=== PATIENT | female | born 1960 | race Caucasian/White ===

== ENCOUNTER 2016-12-17 14:32 | Inpatient (IN) | payer MEDICAID, OTHER, SELFPAY ==
[2016-12-17] MEDS ORDERED: Albuterol/Ipratropium 3.0-0.5 MG/3 ML Neb Soln NEB ONE ×2 (15:17→15:35)
[2016-12-17] MEDS ORDERED: methylPREDNISolone Sodium Succinate 125 MG/2 ML SDV IVPUSH ONE (15:18)
--- NOTE | 2016-12-17 15:22 | EDM.PDOC ---
ED HPI GENERAL MEDICAL PROBLEM - General Chief Complaint: Respiratory Problem Stated Complaint: OXYGEN LEVEL LOW Time Seen by Provider: 12/17/16 15:07 Source of Information: Reports: Patient, [facility] Records History Limitations: Reports: No Limitations - History of Present Illness INITIAL COMMENTS - FREE TEXT/NARRATIVE: HISTORY AND PHYSICAL: History of present illness: Patient is a 56-year-old female who presents to the emergency room from [facility] with complaints of shortness of breath 1 week. 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 Patient is normally on 3 L per nasal cannula for her pre-existing lung disease, skilled nursing staff states they have had to increase her oxygen up to 5 L to get her sats above 88% . Per the skilled nursing's protocol, they are unable to adjust Bianca's oxygen after reaching 5L per NC and are instructed to transfer residence into the emergency room for evaluation. Patient is currently 92% on 5 L per nasal cannula and a temperature of 99.2F. Patient has a past medical history of hypertension, asthma, COPD, emphysema, recurrent pneumonia, cough, and unspecified embolism. Review of systems: As per history of present illness and below otherwise all systems reviewed and negative. Past medical history: As per history of present illness and as reviewed below otherwise noncontributory. Surgical history: As per history of present illness and as reviewed below otherwise noncontributory. Social history: No reported history of drug or alcohol abuse. Family history: As per history of present illness and as reviewed below otherwise noncontributory. Physical exam: General: well-developed and well-nourished 56-year-old female.Able to speak in short sentences before becoming short of breath. Alert and oriented HEENT: Atraumatic, normocephalic, pupils reactive, negative for conjunctival pallor or scleral icterus, mucous membranes moist, throat clear, neck supple, nontender, trachea midline. Lungs: poor air exchange throughout, fine expiratory wheezing noted to posterior upper lobes, labored breathing, chest nontender. Heart: S1S2, regular rate and rythm - tachycardia Abdomen: Soft, obese, nondistended, nontender. Negative for masses. Negative for costovertebral tenderness. Pelvis: Stable nontender. Genitourinary: Deferred. Rectal: Deferred. Extremities: Atraumatic, negative for cords or calf pain. Neurovascular unremarkable. uses a wheelchair for ambulation Neuro: Awake, alert, oriented. Cranial nerves II through XII unremarkable. Cerebellum unremarkable. Motor and sensory unremarkable throughout. Exam nonfocal. Diagnostics: CBC, CMP, EKG, troponin, one view chest x-ray Therapeutics: DuoNeb, Solu-Medrol, oxygen Impression: COPD exacerbation Plan: Admit inpatient Definitive disposition and diagnosis as appropriate pending reevaluation and review of above. Onset: Other (1 week) Duration: Week(s): - Related Data Allergies Allergy/AdvReac Type Severity Reaction Status Date / Time erythromycin base Allergy Cannot Verified 12/17/16 15:17 Remember Home Meds: Home Meds Albuterol Sulfate 1 inh IH Q4H PRN 09/20/15 [History] Formoterol [Perforomist] 1 inh INH BID 09/20/15 [History] metFORMIN HCl [Metformin HCl] 850 mg PO BIDMEALS 09/20/15 [History] predniSONE 10 mg PO DAILY 09/20/15 [History] ALPRAZolam [Alprazolam] 0.5 mg PO Q8H PRN 12/17/16 [History] Acetaminophen [Tylenol] 2 tab PO Q4H PRN 12/17/16 [History] Alum Hydrox/Mag Hydrox/Simeth [Mag-Al Plus] 20 ml PO Q4H PRN 12/17/16 [History] Benzocaine [Oral Anesthetic] 1 applic TP QID PRN 12/17/16 [History] Budesonide [Pulmicort] 1 inh INH BID 12/17/16 [History] Camphor/Phenol [Campho-Phenique Cold Sore Gel] 1 applic TP QID PRN 12/17/16 [ History] Cetirizine [ZyrTEC] 10 mg PO DAILY 12/17/16 [History] Cyclobenzaprine [Flexeril] 10 mg PO Q6H PRN 12/17/16 [History] Docusate Sodium 100 mg PO DAILY 12/17/16 [History] Furosemide [Lasix] 40 mg PO DAILY 12/17/16 [History] Insulin Aspart [NovoLOG] 15 unit SUBCUT ACBREAKFAST 12/17/16 [History] Insulin Aspart [NovoLOG] 17 unit SUBCUT BIDAC 12/17/16 [History] Insulin Aspart [NovoLOG] 100 unit SUBCUT ASDIRECTED 12/17/16 [History] Insulin Glarg,Human.Rec.Analog [LantUS Solostar] 45 units SUBCUT BEDTIME [History] Ipratropium [place] 2.5 ml IH QID 12/17/16 [History] Lisinopril 5 mg PO DAILY 12/17/16 [History] Loperamide HCl [Loperamide] 2 mg PO ASDIRECTED PRN 12/17/16 [History] Magnesium Hydroxide [Milk of Magnesia] 30 ml PO DAILY PRN 12/17/16 [History] Menthol [Biofreeze] 1 applic TP BID PRN 12/17/16 [History] Montelukast Sodium 1 tab PO DAILY 12/17/16 [History] Propylene Glycol/PEG 400/Pf [Systane Ultra 0.4-0.3% Eye Drp] 1 each EYERT DAILY PRN 12/17/16 [History] Sertraline [Zoloft] 25 mg PO DAILY 12/17/16 [History] Trolamine Salicylate/Aloe Vera [Aspercreme 10%] 1 applic TP BID 12/17/16 [ History] Warfarin Sodium [Coumadin] 7.5 mg PO MOWEFR@2100 12/17/16 [History] Warfarin [Coumadin] 5 mg PO SUTUTHSA@2100 12/17/16 [History] atorvaSTATin [Lipitor] 40 mg PO BEDTIME 12/17/16 [History] oxyCODONE HCl/Acetaminophen [Oxycodone-Acetaminophen 5-300] 2 tab PO Q6H PRN 12/24 [History] Levofloxacin [Levaquin] 500 mg PO Q48H #2 tablet 12/19/16 [Rx] Past Medical History HEENT History: Reports: Allergic Rhinitis Cardiovascular History: Reports: Hypertension Respiratory History: Reports: Asthma, COPD Gastrointestinal History: Reports: GERD Musculoskeletal History: Reports: Osteoarthritis Endocrine/Metabolic History: Reports: Diabetes, Type II Social & Family History - Family History Family Medical History: Unobtainable - Tobacco Use Smoking Status *Q: Current Every Day Smoker Years of Tobacco use: 40 Packs/Tins Daily: 1 - Recreational Drug Use Recreational Drug Use: No ED ROS GENERAL - Review of Systems Review Of Systems: ROS reveals no pertinent complaints other than HPI. ED EXAM, GENERAL - Physical Exam Exam: See Below (see dictation) Course - Vital Signs Last Recorded V/S: Last Vital Signs Temp 36.7 C 12/19/16 08:00 Pulse 92 12/19/16 08:00 Resp 16 12/19/16 08:00 BP 135/57 L 12/19/16 08:10 Pulse Ox 90 L 12/19/16 08:00 - Orders/Labs/Meds Labs: Laboratory Tests 12/17/16 12/17/16 12/17/16 Range/Units 15:32 15:32 15:32 WBC 18.23 H (4.0-11.0) K/uL RBC 4.06 L (4.30-5.90) M/uL Hgb 11.2 L (12.0-16.0) g/dL Hct 37.1 (36.0-46.0) % MCV 91.4 (80.0-98.0) fL MCH 27.6 (27.0-32.0) pg MCHC 30.2 L (31.0-37.0) g/dL RDW Std Deviation 60.5 (28.0-62.0) fl RDW Coeff of Jhon 18 H (11.0-15.0) % Plt Count 288 (150-400) K/uL MPV 9.20 (7.40-12.00) fL Neut % (Auto) 87.6 H (48.0-80.0) % Lymph % (Auto) 7.0 L (16.0-40.0) % [place] % (Auto) 5.0 (0.0-15.0) % Eos % (Auto) 0.3 (0.0-7.0) % Baso % (Auto) 0.1 (0.0-1.5) % Neut # (Auto) 16.0 H (1.4-5.7) K/uL Lymph # (Auto) 1.3 (0.6-2.4) K/uL [place] # (Auto) 0.9 H (0.0-0.8) K/uL Eos # (Auto) 0.1 (0.0-0.7) K/uL Baso # (Auto) 0.0 (0.0-0.1) K/uL Nucleated RBC % 0.0 /100WBC Nucleated RBCs # 0 K/uL Sodium 143 (136-146) mmol/L Potassium 4.6 (3.5-5.1) mmol/L Chloride 101 (98-110) mmol/L Carbon Dioxide 32 H (21-31) mmol/L BUN 21 (6.0-23.0) mg/dL Creatinine 1.1 (0.6-1.5) mg/dL Est Cr Clr Drug Dosing 40.53 mL/min Estimated GFR (MDRD) 51.2 ml/min Glucose 72 (60-110) mg/dL POC Glucose (60-110) mg/dL Calcium 10.0 (8.8-10.8) mg/dL Total Bilirubin 0.4 (0.1-1.5) mg/dL AST 20 (5-40) IU/L ALT 35 (8-54) IU/L Alkaline Phosphatase 82 (40-150) Troponin I < 0.10 (0.0-0.29) NG/ML Total Protein 7.6 (6.0-8.0) g/dL Albumin 3.9 (3.5-5.0) g/dL Globulin 3.7 H (2.0-3.5) g/dL Albumin/Globulin Ratio 1.1 L (1.3-2.8) 12/17/16 Range/Units 15:53 WBC (4.0-11.0) K/uL RBC (4.30-5.90) M/uL Hgb (12.0-16.0) g/dL Hct (36.0-46.0) % MCV (80.0-98.0) fL MCH (27.0-32.0) pg MCHC (31.0-37.0) g/dL RDW Std Deviation (28.0-62.0) fl RDW Coeff of Jhon (11.0-15.0) % Plt Count (150-400) K/uL MPV (7.40-12.00) fL Neut % (Auto) (48.0-80.0) % Lymph % (Auto) (16.0-40.0) % [place] % (Auto) (0.0-15.0) % Eos % (Auto) (0.0-7.0) % Baso % (Auto) (0.0-1.5) % Neut # (Auto) (1.4-5.7) K/uL Lymph # (Auto) (0.6-2.4) K/uL [place] # (Auto) (0.0-0.8) K/uL Eos # (Auto) (0.0-0.7) K/uL Baso # (Auto) (0.0-0.1) K/uL Nucleated RBC % /100WBC Nucleated RBCs # K/uL Sodium (136-146) mmol/L Potassium (3.5-5.1) mmol/L Chloride (98-110) mmol/L Carbon Dioxide (21-31) mmol/L BUN (6.0-23.0) mg/dL Creatinine (0.6-1.5) mg/dL Est Cr Clr Drug Dosing mL/min Estimated GFR (MDRD) ml/min Glucose (60-110) mg/dL POC Glucose 72 (60-110) mg/dL Calcium (8.8-10.8) mg/dL Total Bilirubin (0.1-1.5) mg/dL AST (5-40) IU/L ALT (8-54) IU/L Alkaline Phosphatase (40-150) Troponin I (0.0-0.29) NG/ML Total Protein (6.0-8.0) g/dL Albumin (3.5-5.0) g/dL Globulin (2.0-3.5) g/dL Albumin/Globulin Ratio (1.3-2.8) Meds: Medications Discontinued Medications Generic Name Dose Route Start Last Admin Trade Name Caterina PRN Reason Stop Dose Admin Albuterol/Ipratropium 3 ml 12/17/16 15:17 12/17/16 15:37 Duoneb 3.0-0.5 Mg/3 Ml NEB 12/17/16 15:18 3 ml ONETIME ONE Administration Albuterol/Ipratropium 3 ml 12/17/16 15:35 12/17/16 15:41 Duoneb 3.0-0.5 Mg/3 Ml NEB 12/17/16 15:36 3 ml ONETIME ONE Administration Albuterol/Ipratropium 3 ml 12/18/16 00:00 12/19/16 06:57 Duoneb 3.0-0.5 Mg/3 Ml NEB 3 ml Q6HRRT GABRIELLA Administration Atorvastatin Calcium 40 mg 12/18/16 21:00 12/18/16 20:20 Lipitor PO 40 mg BEDTIME GABRIELLA Administration Budesonide 0.5 mg 12/18/16 09:00 12/19/16 08:45 Pulmicort INH 0.5 mg BID GABRIELLA Administration Enoxaparin Sodium 40 mg 12/18/16 09:00 Lovenox SUBCUT DAILY GABRIELLA Furosemide 40 mg 12/17/16 21:00 12/19/16 08:07 Lasix IVPUSH 40 mg BID GABRIELLA Administration Levofloxacin/Dextrose 750 mg/ 150 mls @ 100 mls/hr 12/17/16 17:47 12/17/16 18 :10 Premix IV 12/17/16 19:16 100 mls/hr ONETIME ONE Administration Levofloxacin/Dextrose 750 mg/ 150 mls @ 100 mls/hr 12/18/16 17:00 Premix IV Q24H GABRIELLA Levofloxacin/Dextrose 750 mg/ 150 mls @ 100 mls/hr 12/19/16 18:00 Premix IV Q48H GABRIELLA Insulin Aspart 15 unit 12/18/16 07:30 12/19/16 07:17 Novolog SUBCUT 15 units ACBREAKFAST GABRIELLA Administration Insulin Aspart 17 unit 12/18/16 07:30 Novolog SUBCUT BIDAC GABRIELLA Insulin Aspart 17 unit 12/18/16 11:30 12/18/16 16:43 Novolog SUBCUT 17 unit BID@1130,1700 GABRIELLA Administration Insulin Glargine 45 units 12/17/16 19:45 12/18/16 20:17 Lantus Solostar SUBCUT 45 units BEDTIME GABRIELLA Administration Lisinopril 5 mg 12/18/16 09:00 12/19/16 08:10 Prinivil PO 5 mg DAILY GABRIELLA Administration Methylprednisolone Sodium Succinate 125 mg 12/17/16 15:18 12/17/16 15:53 Solu-Medrol IVPUSH 12/17/16 15:19 125 mg ONETIME ONE Administration Methylprednisolone Sodium Succinate 125 mg 12/17/16 21:00 Solu-Medrol IVPUSH Q6H GABRIELLA Methylprednisolone Sodium Succinate 125 mg 12/17/16 20:00 12/18/16 01:44 Solu-Medrol IVPUSH Not Given Q12H COUNTS INCLUDE 234 BEDS AT THE [facility] Methylprednisolone Sodium Succinate 125 mg 12/18/16 08:00 12/19/16 08:07 Solu-Medrol IVPUSH 125 mg Q12H COUNTS INCLUDE 234 BEDS AT THE [facility] Administration Montelukast Sodium 10 mg 12/18/16 09:00 12/19/16 08:07 Singulair PO 10 mg DAILY COUNTS INCLUDE 234 BEDS AT THE [facility] Administration Formoterol [ 1 each 12/17/16 21:00 12/19/16 08:47 Perforomist] 20 Mcg INH Not Given BID COUNTS INCLUDE 234 BEDS AT THE [facility] Warfarin Sodium 5 mg 12/18/16 21:00 Coumadin PO BEDTIME COUNTS INCLUDE 234 BEDS AT THE [facility] Warfarin Sodium 7.5 mg 12/18/16 21:00 12/18/16 20:20 Coumadin PO 7.5 mg MoWeFr@2100 COUNTS INCLUDE 234 BEDS AT THE [facility] Administration Warfarin Sodium 5 mg 12/17/16 21:44 12/17/16 22:57 Coumadin PO 5 mg SuTuThSa@2100 COUNTS INCLUDE 234 BEDS AT THE [facility] Administration Departure - Departure Time of Disposition: 10:00 Disposition: Admitted As Inpatient 65 Clinical Impression: COPD exacerbation - Discharge Information
[2016-12-17] MEDS ORDERED: Levofloxacin/Dextrose 5%-Water 750 MG in Premix Bag 1 BAG IV ONE (17:47)
--- NOTE | 2016-12-17 19:40 | PCM.HP ---
H&P History of Present Illness - General Admit Problem/Dx: Admission Diagnosis/Problem Admission Diagnosis/Problem COPD, Mild chronic obstructive pulmonary disease - History of Present Illness Initial Comments - Free Text/Narative: 56 yo female with pmh of COPD, DM, CHF and PE on coumadin who resides at [facility]. She is on home O2 and prednisone. She presents with several day history of shortness of breath, orthopnea, and lower leg swelling. Patient believes she is up in her weight. She reports cough but denies any fever or chills. She was requiring NRB at 5 liters to keep sats above 90%. Echocardiogram in 09/22/15 reported EF of 65%. She received solumderol, duonebs and levaquin in the ED. CXR reported cardiomegaly, small pleural effusion and pulmonary edema. - Related Data Allergies/Adverse Reactions: Allergies Allergy/AdvReac Type Severity Reaction Status Date / Time erythromycin base Allergy Cannot Verified 12/17/16 15:17 Remember Home Medications: Home Meds Albuterol Sulfate 1 inh IH Q4H PRN 09/20/15 [History] Budesonide [Pulmicort] 0.5 mg IH BID 09/20/15 [History] Formoterol [Perforomist] 1 inh INH BID 09/20/15 [History] Lisinopril 5 mg PO DAILY 09/20/15 [History] metFORMIN HCl [Metformin HCl] 850 mg PO BIDMEALS 09/20/15 [History] predniSONE 10 mg PO DAILY 09/20/15 [History] ALPRAZolam [Alprazolam] 0.5 mg PO Q8H PRN 12/17/16 [History] Acetaminophen [Tylenol] 2 tab PO Q4H PRN 12/17/16 [History] Alum Hydrox/Mag Hydrox/Simeth [Mag-Al Plus] 20 ml PO Q4H PRN 12/17/16 [History] Benzocaine [Oral Anesthetic] 1 applic TP QID PRN 12/17/16 [History] Budesonide [Pulmicort] 1 inh INH BID 12/17/16 [History] Camphor/Phenol [Campho-Phenique Cold Sore Gel] 1 applic TP QID PRN 12/17/16 [ History] Cetirizine [ZyrTEC] 10 mg PO DAILY 12/17/16 [History] Cyclobenzaprine [Flexeril] 10 mg PO Q6H PRN 12/17/16 [History] Docusate Sodium 100 mg PO DAILY 12/17/16 [History] Furosemide 40 mg PO DAILY 12/17/16 [History] Furosemide [Lasix] 40 mg PO DAILY 12/17/16 [History] Insulin Aspart [NovoLOG] 15 unit SUBCUT ACBREAKFAST 12/17/16 [History] Insulin Aspart [NovoLOG] 17 unit SUBCUT BIDAC 12/17/16 [History] Insulin Aspart [NovoLOG] 100 unit SUBCUT ASDIRECTED 12/17/16 [History] Insulin Glarg,Human.Rec.Analog [LantUS Solostar] 45 units SUBCUT BEDTIME [History] Ipratropium [place] 2.5 ml IH QID 12/17/16 [History] Lisinopril 5 mg PO DAILY 12/17/16 [History] Loperamide HCl [Loperamide] 2 mg PO ASDIRECTED PRN 12/17/16 [History] Magnesium Hydroxide [Milk of Magnesia] 30 ml PO DAILY PRN 12/17/16 [History] Menthol [Biofreeze] 1 applic TP BID PRN 12/17/16 [History] Montelukast Sodium 1 tab PO DAILY 12/17/16 [History] Propylene Glycol/PEG 400/Pf [Systane Ultra 0.4-0.3% Eye Drp] 1 each EYERT DAILY PRN 12/17/16 [History] Sertraline [Zoloft] 25 mg PO DAILY 12/17/16 [History] Trolamine Salicylate/Aloe Vera [Aspercreme 10%] 1 applic TP BID 12/17/16 [ History] Warfarin Sodium [Coumadin] 7.5 mg PO BEDTIME 12/17/16 [History] Warfarin [Coumadin] 5 mg PO BEDTIME 12/17/16 [History] atorvaSTATin [Lipitor] 40 mg PO BEDTIME 12/17/16 [History] oxyCODONE HCl/Acetaminophen [Oxycodone-Acetaminophen 5-300] 2 tab PO Q6H PRN 12/24 [History] Past Medical History HEENT History: Reports: Allergic Rhinitis Cardiovascular History: Reports: Heart Failure, Hypertension Respiratory History: Reports: Asthma, COPD Gastrointestinal History: Reports: GERD Musculoskeletal History: Reports: Osteoarthritis Endocrine/Metabolic History: Reports: Diabetes, Type II - Past Surgical History Cardiovascular Surgical History: Reports: None Social & Family History - Family History Family Medical History: Unobtainable - Tobacco Use Smoking Status *Q: Former Smoker Years of Tobacco use: 40 Packs/Tins Daily: 1 Used Tobacco, but Quit: Yes Month Tobacco Last Used: 09/2015 - Caffeine Use Caffeine Use: Reports: None - Recreational Drug Use Recreational Drug Use: Yes H&P Review of Systems - Review of Systems: Review Of Systems: ROS reveals no pertinent complaints other than HPI. Exam - Exam Exam: See Below - Vital Signs Vital Signs: Last Vital Signs Temp 37.0 C 12/17/16 18:55 Pulse 110 H 12/17/16 18:55 Resp 22 H 12/17/16 18:55 BP 143/73 H 12/17/16 18:55 Pulse Ox 91 L 12/17/16 18:55 Weight: 89.403 kg - Exam General: Alert, Oriented HEENT: Mucosa Moist & [place], Posterior Pharynx Clear Lungs: Normal Respiratory Effort, Decreased Breath Sounds Cardiovascular: Regular Rate, Regular Rhythm GI/Abdominal Exam: Normal Bowel Sounds, Soft, No Distention Extremities: Pedal Edema (mild) Skin: Warm, Dry, Intact Neurological: Strength Equal Bilateral, Normal Speech. No: Focal Deficit - Patient Data Result Diagrams: 12/18/16 04:40 12/18/16 04:40 *Q Meaningful Use (ADM) - VTE *Q VTE Criteria *Q: - Stroke *Q Stroke Criteria *Q: - AMI *Q AMI Criteria *Q: Problem List Initiated/Reviewed/Updated: Yes Orders Last 24hrs: Active Orders 24 hr Category Date Time Status Antiembolic Devices [RC] PER UNIT ROUTINE Care 12/17/16 19:34 Ordered Blood Glucose Check, Bedside [RC] TIDMEALS Care 12/17/16 19:32 Ordered Intake and Output [RC] QSHIFT Care 12/17/16 19:33 Ordered Oxygen Therapy [RC] PRN Care 12/17/16 19:32 Ordered RT Aerosol Therapy [RC] ASDIRECTED Care 12/17/16 19:34 Ordered Up ad Debbie [RC] ASDIRECTED Care 12/17/16 19:32 Ordered VTE/DVT Education [RC] PER UNIT ROUTINE Care 12/17/16 19:32 Ordered Vital Signs [RC] Q4H Care 12/17/16 19:32 Ordered [employer] Diet [DIET] Diet 12/17/16 Breakfast Ordered BASIC METABOLIC PANEL,BMP [CHEM] AM Lab 12/18/16 05:11 Ordered CBC WITH AUTO DIFF [HEME] AM Lab 12/18/16 05:11 Ordered CULTURE BLOOD [BC] Stat Lab 12/17/16 19:34 Ordered CULTURE BLOOD [BC] Stat Lab 12/17/16 19:34 Ordered CULTURE SPUTUM + SMEAR [RM] Stat Lab 12/17/16 19:32 Uncollected Albuterol/Ipratropium [DuoNeb 3.0-0.5 MG/3 ML] Med 12/18/16 00:00 Ordered 3 ml NEB Q6HRRT Enoxaparin [Lovenox] Med 12/18/16 09:00 Ordered 40 mg SUBCUT DAILY Formoterol [Perforomist] Med 12/17/16 21:00 Ordered 20 mcg INH BID Furosemide [Lasix] Med 12/17/16 21:00 Ordered 40 mg IVPUSH BID Levofloxacin/Dextrose 5%-Water [Levaquin in D5W 750 MG/ Med 12/18/16 17:00 Ordered 150 ML] 750 mg Premix Bag 1 bag IV Q24H methylPREDNISolone Sod Succ [Solu-MEDROL] Med 12/17/16 19:45 Ordered 125 mg IVPUSH Q6H Blood Culture x2 Reflex Set [OM.PC] Stat Oth 12/17/16 19:34 Ordered Sequential Compression Device [OM.PC] Per Unit Routine Oth 12/17/16 19:33 Ordered Resuscitation Status Routine Resus Stat 12/17/16 19:32 Ordered Medication Orders Furosemide (Lasix) 40 mg IVPUSH BID GABRIELLA Levofloxacin/Dextrose 750 mg/ (Premix) 150 mls @ 100 mls/hr IV Q24H GABRIELLA Methylprednisolone Sodium Succinate (Solu-Medrol) 125 mg IVPUSH Q6H GABRIELLA Non-Formulary Medication (Formoterol [Perforomist]) 20 mcg INH BID GABRIELLA Assessment/Plan Comment:: 56 yo female admitted with CHF and COPD exacerbation CHF: will diures with lasix COPD exacerbation: treating with solumedrol, duonebs, and levaquin DM: on lantus and ssi history of PE: on coumadin will check INR
[2016-12-17] MEDS ORDERED: methylPREDNISolone Sodium Succinate 125 MG/2 ML SDV IVPUSH SCH ×2 (20:00→21:00)
[2016-12-17] MEDS: Insulin Glargine,Human Rec. Analog 100 Units/ML 3 ML Pen SUBCUT SCH ×2 (21:12→21:17)
[2016-12-17] MEDS: Furosemide 40 MG/4 ML VIAL IVPUSH SCH (21:12)
[2016-12-17] MEDS ORDERED: Warfarin 5 MG Tab PO SCH (21:44)
[2016-12-17] MEDS: Albuterol/Ipratropium 3.0-0.5 MG/3 ML Neb Soln NEB SCH (23:02)
[2016-12-18] MEDS: Insulin Aspart 100 Units/ML 3 ML Pen SUBCUT SCH ×3 (06:48→16:43)
[2016-12-18] MEDS: Albuterol/Ipratropium 3.0-0.5 MG/3 ML Neb Soln NEB SCH ×4 (07:02→23:10)
[2016-12-18] MEDS ORDERED: Insulin Aspart 100 Units/ML 3 ML Pen SUBCUT SCH (07:30)
[2016-12-18] MEDS: Montelukast 10 MG Tab PO SCH (08:35)
[2016-12-18] MEDS: methylPREDNISolone Sodium Succinate 125 MG/2 ML SDV IVPUSH SCH ×2 (08:35→20:18)
[2016-12-18] MEDS: Furosemide 40 MG/4 ML VIAL IVPUSH SCH ×2 (08:35→20:19)
[2016-12-18] MEDS: Lisinopril 5 MG Tab PO SCH (08:35)
[2016-12-18] MEDS: FORMOTEROL 20 MCG INH SCH ×2 (08:36→20:24)
[2016-12-18] MEDS ORDERED: Enoxaparin 40 MG/0.4 ML Syringe SUBCUT SCH (09:00)
[2016-12-18] MEDS: Budesonide 0.5 MG/2 ML Neb Susp INH SCH ×2 (09:14→21:08)
--- NOTE | 2016-12-18 09:35 | PCM.PN ---
- Review of Systems Systems Review Comment:: feeling better, breathing has improved. - Patient Data Vitals - Most Recent: Last Vital Signs Temp 36.1 C 12/18/16 08:00 Pulse 91 12/18/16 08:00 Resp 20 12/18/16 08:00 BP 123/59 L 12/18/16 08:35 Pulse Ox 91 L 12/18/16 08:00 Weight - Most Recent: 75.5 kg I&O - Last 24 Hours: Intake & Output 12/17/16 12/18/16 12/18/16 22:59 06:59 14:59 Intake Total 800 Output Total 1850 Balance -1050 Lab Results Last 24 Hours: Laboratory Results - last 24 hr 12/17/16 12/17/16 12/18/16 Range/Units 19:43 20:45 04:40 WBC 13.75 H (4.0-11.0) K/uL RBC 3.65 L (4.30-5.90) M/uL Hgb 9.9 L (12.0-16.0) g/dL Hct 32.8 L (36.0-46.0) % MCV 89.9 (80.0-98.0) fL MCH 27.1 (27.0-32.0) pg MCHC 30.2 L (31.0-37.0) g/dL RDW Std Deviation 57.9 (28.0-62.0) fl RDW Coeff of Jhon 18 H (11.0-15.0) % Plt Count 284 (150-400) K/uL MPV 9.20 (7.40-12.00) fL Neut % (Auto) 91.1 H (48.0-80.0) % Lymph % (Auto) 5.9 L (16.0-40.0) % [place] % (Auto) 2.9 (0.0-15.0) % Eos % (Auto) 0.0 (0.0-7.0) % Baso % (Auto) 0.1 (0.0-1.5) % Neut # (Auto) 12.5 H (1.4-5.7) K/uL Lymph # (Auto) 0.8 (0.6-2.4) K/uL [place] # (Auto) 0.4 (0.0-0.8) K/uL Eos # (Auto) 0.0 (0.0-0.7) K/uL Baso # (Auto) 0.0 (0.0-0.1) K/uL Nucleated RBC % 0.0 /100WBC Nucleated RBCs # 0 K/uL INR 1.89 H (0.86-1.11) Sodium (136-146) mmol/L Potassium (3.5-5.1) mmol/L Chloride (98-110) mmol/L Carbon Dioxide (21-31) mmol/L BUN (6.0-23.0) mg/dL Creatinine (0.6-1.5) mg/dL Est Cr Clr Drug Dosing mL/min Estimated GFR (MDRD) ml/min Glucose (60-110) mg/dL POC Glucose 121 H (60-110) mg/dL Calcium (8.8-10.8) mg/dL 12/18/16 12/18/16 Range/Units 04:40 04:40 WBC (4.0-11.0) K/uL RBC (4.30-5.90) M/uL Hgb (12.0-16.0) g/dL Hct (36.0-46.0) % MCV (80.0-98.0) fL MCH (27.0-32.0) pg MCHC (31.0-37.0) g/dL RDW Std Deviation (28.0-62.0) fl RDW Coeff of Jhon (11.0-15.0) % Plt Count (150-400) K/uL MPV (7.40-12.00) fL Neut % (Auto) (48.0-80.0) % Lymph % (Auto) (16.0-40.0) % [place] % (Auto) (0.0-15.0) % Eos % (Auto) (0.0-7.0) % Baso % (Auto) (0.0-1.5) % Neut # (Auto) (1.4-5.7) K/uL Lymph # (Auto) (0.6-2.4) K/uL [place] # (Auto) (0.0-0.8) K/uL Eos # (Auto) (0.0-0.7) K/uL Baso # (Auto) (0.0-0.1) K/uL Nucleated RBC % /100WBC Nucleated RBCs # K/uL INR 1.83 H (0.86-1.11) Sodium 143 (136-146) mmol/L Potassium 4.4 (3.5-5.1) mmol/L Chloride 97 L (98-110) mmol/L Carbon Dioxide 34 H (21-31) mmol/L BUN 28 H (6.0-23.0) mg/dL Creatinine 1.3 (0.6-1.5) mg/dL Est Cr Clr Drug Dosing 34.29 mL/min Estimated GFR (MDRD) 42.2 ml/min Glucose 286 H (60-110) mg/dL POC Glucose (60-110) mg/dL Calcium 9.3 (8.8-10.8) mg/dL Med Orders - Current: Current Medications Albuterol/Ipratropium (Duoneb 3.0-0.5 Mg/3 Ml) 3 ml NEB Q6HRRT [facility] Last Admin: 12/18/16 07:02 Dose: 3 ml Atorvastatin Calcium (Lipitor) 40 mg PO BEDTIME [facility] Budesonide (Pulmicort) 0.5 mg INH BID [facility] Last Admin: 12/18/16 09:14 Dose: 0.5 mg Furosemide (Lasix) 40 mg IVPUSH BID [facility] Last Admin: 12/18/16 08:35 Dose: 40 mg Levofloxacin/Dextrose 750 mg/ (Premix) 150 mls @ 100 mls/hr IV Q48H [facility] Insulin Aspart (Novolog) 15 unit SUBCUT ACBREAKFAST [facility] Last Admin: 12/18/16 06:48 Dose: 15 units Insulin Aspart (Novolog) 17 unit SUBCUT BID@1130,1700 [facility] Insulin Glargine (Lantus Solostar) 45 units SUBCUT BEDTIME [facility] Last Admin: 12/17/16 21:17 Dose: Not Given Lisinopril (Prinivil) 5 mg PO DAILY [facility] Last Admin: 12/18/16 08:35 Dose: 5 mg Methylprednisolone Sodium Succinate (Solu-Medrol) 125 mg IVPUSH Q12H [facility] Last Admin: 12/18/16 08:35 Dose: 125 mg Montelukast Sodium (Singulair) 10 mg PO DAILY [facility] Last Admin: 12/18/16 08:35 Dose: 10 mg Formoterol [ (Perforomist] 20 Mcg) 1 each INH BID [facility] Last Admin: 12/18/16 08:36 Dose: Not Given Warfarin Sodium (Coumadin) 7.5 mg PO MoWeFr@2100 [facility] Warfarin Sodium (Coumadin) 5 mg PO SuTuThSa@2100 [facility] Last Admin: 12/17/16 22:57 Dose: 5 mg Discontinued Medications Albuterol/Ipratropium (Duoneb 3.0-0.5 Mg/3 Ml) 3 ml NEB ONETIME ONE Stop: 12/17/16 15:18 Last Admin: 12/17/16 15:37 Dose: 3 ml Albuterol/Ipratropium (Duoneb 3.0-0.5 Mg/3 Ml) 3 ml NEB ONETIME ONE Stop: 12/17/16 15:36 Last Admin: 12/17/16 15:41 Dose: 3 ml Enoxaparin Sodium (Lovenox) 40 mg SUBCUT DAILY [facility] Levofloxacin/Dextrose 750 mg/ (Premix) 150 mls @ 100 mls/hr IV ONETIME ONE Stop: 12/17/16 19:16 Last Admin: 12/17/16 18:10 Dose: 100 mls/hr Levofloxacin/Dextrose 750 mg/ (Premix) 150 mls @ 100 mls/hr IV Q24H [facility] Insulin Aspart (Novolog) 17 unit SUBCUT BIDAC [facility] Methylprednisolone Sodium Succinate (Solu-Medrol) 125 mg IVPUSH ONETIME ONE Stop: 12/17/16 15:19 Last Admin: 12/17/16 15:53 Dose: 125 mg Methylprednisolone Sodium Succinate (Solu-Medrol) 125 mg IVPUSH Q6H [facility] Methylprednisolone Sodium Succinate (Solu-Medrol) 125 mg IVPUSH Q12H [facility] Last Admin: 12/18/16 01:44 Dose: Not Given Warfarin Sodium (Coumadin) 5 mg PO BEDTIME [facility] - Exam General: Alert, Oriented Lungs: Crackles, Wheezing Cardiovascular: Regular Rate, Regular Rhythm GI/Abdominal Exam: Soft, Non-Tender Extremities: No Pedal Edema Skin: Warm, Dry, Intact Neurological: No New Focal Deficit - Problem List Review Problem List Initiated/Reviewed/Updated: Yes - My Orders Last 24 Hours: My Active Orders 12/17/16 19:32 Blood Glucose Check, Bedside [RC] TIDMEALS Oxygen Therapy [RC] PRN Up ad Debbie [RC] ASDIRECTED Vital Signs [RC] Q4H CULTURE SPUTUM + SMEAR [RM] Stat Resuscitation Status Routine 12/17/16 19:33 Intake and Output [RC] QSHIFT Sequential Compression Device [OM.PC] Per Unit Routine 12/17/16 19:34 Antiembolic Devices [RC] PER UNIT ROUTINE RT Aerosol Therapy [RC] ASDIRECTED Blood Culture x2 Reflex Set [OM.PC] Stat 12/17/16 19:43 CULTURE BLOOD [BC] Stat 12/17/16 19:45 Insulin Glarg,Human.Rec.Analog [LantUS Solostar] 45 units SUBCUT BEDTIME 12/17/16 20:02 CULTURE BLOOD [BC] Stat 12/17/16 21:00 Furosemide [Lasix] 40 mg IVPUSH BID Patient's Own Medication [Ptom] 1 each INH BID 12/17/16 21:44 Warfarin [Coumadin] 5 mg PO SuTuThSa@2100 12/18/16 Echo Comp wo Cont [US] Routine 12/18/16 00:00 Albuterol/Ipratropium [DuoNeb 3.0-0.5 MG/3 ML] 3 ml NEB Q6HRRT 12/18/16 07:30 Insulin Aspart [NovoLOG] 15 unit SUBCUT ACBREAKFAST 12/18/16 07:31 Pharmacy Consult [Consult to Pharmacy] [CONS] Routine 12/18/16 08:00 methylPREDNISolone Sod Succ [Solu-MEDROL] 125 mg IVPUSH Q12H 12/18/16 09:00 Budesonide [Pulmicort] 0.5 mg INH BID Lisinopril [Prinivil] 5 mg PO DAILY Montelukast [Singulair] 10 mg PO DAILY 12/18/16 11:30 Insulin Aspart [NovoLOG] 17 unit SUBCUT BID@1130,1700 12/18/16 21:00 Warfarin [Coumadin] 7.5 mg PO MoWeFr@2100 atorvaSTATin [Lipitor] 40 mg PO BEDTIME 12/19/16 05:11 BASIC METABOLIC PANEL,BMP [CHEM] AM CBC WITH AUTO DIFF [HEME] AM INR,PT,PROTHROMBIN TIME [COAG] AM 12/19/16 18:00 Levofloxacin/Dextrose 5%-Water [Levaquin in D5W 750 MG/150 ML] 750 mg Premix Bag 1 bag IV Q48H 12/20/16 05:11 BASIC METABOLIC PANEL,BMP [CHEM] AM CBC WITH AUTO DIFF [HEME] AM INR,PT,PROTHROMBIN TIME [COAG] AM - Plan Plan:: 56 yo female admitted with CHF and COPD exacerbation CHF exacebation: continue lasix, on 3 L NC O2, echocardiogram pending COPD exacerbation: continue solumedrol, duonebs, and levaquin DM: on lantus and ssi history of PE: on coumadin
--- NOTE | 2016-12-18 10:18 | CR ---
EXAM DATE: 12/17/16 PATIENT'S AGE: 56 Patient: ORI GUNDERSON Facility: [place], [place] Site . Site : [id number] Study: XRay Chest [id number] 4:56:28 PM Ordering Physician: Doctor Vail Final Report: HISTORY: Fever, cough and hypoxemia. FINDINGS: AP portable chest radiograph is degraded by artifact. Compression plate fuses the lower cervical spine. Cardiac silhouette is enlarged. Pulmonary vasculature is ill-defined. Peribronchial cuffing is present. There is small bilateral pleural effusions. No lobar consolidation identified. IMPRESSION: 1. Suboptimal exam. 2. Mild cardiomegaly with ill-defined pulmonary vasculature, peribronchial cuffing and small bilateral pleural effusions suggesting CHF. 3. No lobar infiltrate identified. Dictated by Shilpa Schmidt MD @ 12/17/2016 5:20:11 PM Dictated by: Shilpa Schmidt MD @ 12/17/2016 17:20:23 (Electronic Signature) Report Signed by Proxy. [facility]
[2016-12-18] MEDS ORDERED: Levofloxacin/Dextrose 5%-Water 750 MG in Premix Bag 1 BAG IV SCH (17:00)
[2016-12-18] MEDS: Insulin Glargine,Human Rec. Analog 100 Units/ML 3 ML Pen SUBCUT SCH (20:17)
[2016-12-18] MEDS ORDERED: Warfarin 5 MG Tab PO SCH (21:00)
[2016-12-18] MEDS ORDERED: atorvaSTATin 40 MG Tab PO SCH (21:00)
[2016-12-18] MEDS ORDERED: Warfarin 2.5 MG Tab PO SCH (21:00)
[2016-12-19] MEDS: Albuterol/Ipratropium 3.0-0.5 MG/3 ML Neb Soln NEB SCH (06:57)
[2016-12-19] MEDS: Insulin Aspart 100 Units/ML 3 ML Pen SUBCUT SCH (07:17)
[2016-12-19] MEDS: Montelukast 10 MG Tab PO SCH (08:07)
[2016-12-19] MEDS: methylPREDNISolone Sodium Succinate 125 MG/2 ML SDV IVPUSH SCH (08:07)
[2016-12-19] MEDS: Furosemide 40 MG/4 ML VIAL IVPUSH SCH (08:07)
[2016-12-19 08:10] VITALS: BP 135/57
[2016-12-19] MEDS: Lisinopril 5 MG Tab PO SCH (08:10)
[2016-12-19] MEDS: Budesonide 0.5 MG/2 ML Neb Susp INH SCH (08:45)
[2016-12-19] MEDS: FORMOTEROL 20 MCG INH SCH (08:47)
--- NOTE | 2016-12-19 08:49 | PCM.DCSUM1 ---
Discharge Summary - Discharge Data Discharge Date: 12/19/16 Discharge Disposition: DC/Tfer to SNF 03 Condition: Good - Patient Summary/Data Consults: Consultations 12/18/16 07:31 Pharmacy Consult [Consult to Pharmacy] [CONS] Routine - Patient Instructions Diet: Fluid Restriction (1800 ml daily) Other/Special Instructions: PT and OT consult. Supplemental O2 3-4L Via Nasal canula - Discharge Plan Prescriptions/Med Rec: Levofloxacin [Levaquin] 500 mg PO Q48H #2 tablet Home Medications: Home Meds Albuterol Sulfate 1 inh IH Q4H PRN 09/20/15 [History] Formoterol [Perforomist] 1 inh INH BID 09/20/15 [History] metFORMIN HCl [Metformin HCl] 850 mg PO BIDMEALS 09/20/15 [History] predniSONE 10 mg PO DAILY 09/20/15 [History] ALPRAZolam [Alprazolam] 0.5 mg PO Q8H PRN 12/17/16 [History] Acetaminophen [Tylenol] 2 tab PO Q4H PRN 12/17/16 [History] Alum Hydrox/Mag Hydrox/Simeth [Mag-Al Plus] 20 ml PO Q4H PRN 12/17/16 [History] Benzocaine [Oral Anesthetic] 1 applic TP QID PRN 12/17/16 [History] Budesonide [Pulmicort] 1 inh INH BID 12/17/16 [History] Camphor/Phenol [Campho-Phenique Cold Sore Gel] 1 applic TP QID PRN 12/17/16 [ History] Cetirizine [ZyrTEC] 10 mg PO DAILY 12/17/16 [History] Cyclobenzaprine [Flexeril] 10 mg PO Q6H PRN 12/17/16 [History] Docusate Sodium 100 mg PO DAILY 12/17/16 [History] Furosemide [Lasix] 40 mg PO DAILY 12/17/16 [History] Insulin Aspart [NovoLOG] 15 unit SUBCUT ACBREAKFAST 12/17/16 [History] Insulin Aspart [NovoLOG] 17 unit SUBCUT BIDAC 12/17/16 [History] Insulin Aspart [NovoLOG] 100 unit SUBCUT ASDIRECTED 12/17/16 [History] Insulin Glarg,Human.Rec.Analog [LantUS Solostar] 45 units SUBCUT BEDTIME 10/10/ 17 [History] Ipratropium [place] 2.5 ml IH QID 12/17/16 [History] Lisinopril 5 mg PO DAILY 12/17/16 [History] Loperamide HCl [Loperamide] 2 mg PO ASDIRECTED PRN 12/17/16 [History] Magnesium Hydroxide [Milk of Magnesia] 30 ml PO DAILY PRN 12/17/16 [History] Menthol [Biofreeze] 1 applic TP BID PRN 12/17/16 [History] Montelukast Sodium 1 tab PO DAILY 12/17/16 [History] Propylene Glycol/PEG 400/Pf [Systane Ultra 0.4-0.3% Eye Drp] 1 each EYERT DAILY PRN 12/17/16 [History] Sertraline [Zoloft] 25 mg PO DAILY 12/17/16 [History] Trolamine Salicylate/Aloe Vera [Aspercreme 10%] 1 applic TP BID 12/17/16 [ History] Warfarin Sodium [Coumadin] 7.5 mg PO MOWEFR@2100 12/17/16 [History] Warfarin [Coumadin] 5 mg PO SUTUTHSA@2100 12/17/16 [History] atorvaSTATin [Lipitor] 40 mg PO BEDTIME 12/17/16 [History] oxyCODONE HCl/Acetaminophen [Oxycodone-Acetaminophen 5-300] 2 tab PO Q6H PRN 12/24 [History] Levofloxacin [Levaquin] 500 mg PO Q48H #2 tablet 12/19/16 [Rx] Referrals: PCP,None [Primary Care Provider] - - Patient Data Vitals - Most Recent: Last Vital Signs Temp 36.6 C 12/19/16 04:00 Pulse 66 12/19/16 04:00 Resp 20 12/19/16 04:00 BP 135/57 L 12/19/16 08:10 Pulse Ox 95 12/19/16 06:58 Weight - Most Recent: 89.403 kg I&O - Last 24 hours: Intake & Output 12/18/16 12/19/16 12/19/16 22:59 06:59 14:59 Intake Total 780 550 Output Total 1100 1700 Balance -320 -1150 Lab Results - Last 24 hrs: Laboratory Results - last 24 hr 12/18/16 12/18/16 12/18/16 Range/Units 06:16 11:30 16:19 WBC (4.0-11.0) K/uL RBC (4.30-5.90) M/uL Hgb (12.0-16.0) g/dL Hct (36.0-46.0) % MCV (80.0-98.0) fL MCH (27.0-32.0) pg MCHC (31.0-37.0) g/dL RDW Std Deviation (28.0-62.0) fl RDW Coeff of Jhon (11.0-15.0) % Plt Count (150-400) K/uL MPV (7.40-12.00) fL Neut % (Auto) (48.0-80.0) % Lymph % (Auto) (16.0-40.0) % [place] % (Auto) (0.0-15.0) % Eos % (Auto) (0.0-7.0) % Baso % (Auto) (0.0-1.5) % Neut # (Auto) (1.4-5.7) K/uL Lymph # (Auto) (0.6-2.4) K/uL [place] # (Auto) (0.0-0.8) K/uL Eos # (Auto) (0.0-0.7) K/uL Baso # (Auto) (0.0-0.1) K/uL Nucleated RBC % /100WBC Nucleated RBCs # K/uL INR (0.86-1.11) Sodium (136-146) mmol/L Potassium (3.5-5.1) mmol/L Chloride (98-110) mmol/L Carbon Dioxide (21-31) mmol/L BUN (6.0-23.0) mg/dL Creatinine (0.6-1.5) mg/dL Est Cr Clr Drug Dosing mL/min Estimated GFR (MDRD) ml/min Glucose (60-110) mg/dL POC Glucose 233 H 228 H 246 H (60-110) mg/dL Calcium (8.8-10.8) mg/dL 12/18/16 12/19/16 12/19/16 Range/Units 20:11 05:05 05:05 WBC 16.40 H (4.0-11.0) K/uL RBC 3.75 L (4.30-5.90) M/uL Hgb 10.2 L (12.0-16.0) g/dL Hct 33.1 L (36.0-46.0) % MCV 88.3 (80.0-98.0) fL MCH 27.2 (27.0-32.0) pg MCHC 30.8 L (31.0-37.0) g/dL RDW Std Deviation 56.1 (28.0-62.0) fl RDW Coeff of Jhon 17 H (11.0-15.0) % Plt Count 341 (150-400) K/uL MPV 9.70 (7.40-12.00) fL Neut % (Auto) 91.0 H (48.0-80.0) % Lymph % (Auto) 6.2 L (16.0-40.0) % [place] % (Auto) 2.7 (0.0-15.0) % Eos % (Auto) 0.0 (0.0-7.0) % Baso % (Auto) 0.1 (0.0-1.5) % Neut # (Auto) 14.9 H (1.4-5.7) K/uL Lymph # (Auto) 1.0 (0.6-2.4) K/uL [place] # (Auto) 0.5 (0.0-0.8) K/uL Eos # (Auto) 0.0 (0.0-0.7) K/uL Baso # (Auto) 0.0 (0.0-0.1) K/uL Nucleated RBC % 0.0 /100WBC Nucleated RBCs # 0 K/uL INR 2.28 H (0.86-1.11) Sodium (136-146) mmol/L Potassium (3.5-5.1) mmol/L Chloride (98-110) mmol/L Carbon Dioxide (21-31) mmol/L BUN (6.0-23.0) mg/dL Creatinine (0.6-1.5) mg/dL Est Cr Clr Drug Dosing mL/min Estimated GFR (MDRD) ml/min Glucose (60-110) mg/dL POC Glucose 232 H (60-110) mg/dL Calcium (8.8-10.8) mg/dL 12/19/16 12/19/16 Range/Units 05:05 06:11 WBC (4.0-11.0) K/uL RBC (4.30-5.90) M/uL Hgb (12.0-16.0) g/dL Hct (36.0-46.0) % MCV (80.0-98.0) fL MCH (27.0-32.0) pg MCHC (31.0-37.0) g/dL RDW Std Deviation (28.0-62.0) fl RDW Coeff of Jhon (11.0-15.0) % Plt Count (150-400) K/uL MPV (7.40-12.00) fL Neut % (Auto) (48.0-80.0) % Lymph % (Auto) (16.0-40.0) % [place] % (Auto) (0.0-15.0) % Eos % (Auto) (0.0-7.0) % Baso % (Auto) (0.0-1.5) % Neut # (Auto) (1.4-5.7) K/uL Lymph # (Auto) (0.6-2.4) K/uL [place] # (Auto) (0.0-0.8) K/uL Eos # (Auto) (0.0-0.7) K/uL Baso # (Auto) (0.0-0.1) K/uL Nucleated RBC % /100WBC Nucleated RBCs # K/uL INR (0.86-1.11) Sodium 138 (136-146) mmol/L Potassium 4.4 (3.5-5.1) mmol/L Chloride 91 L (98-110) mmol/L Carbon Dioxide 35 H (21-31) mmol/L BUN 43 H (6.0-23.0) mg/dL Creatinine 1.5 (0.6-1.5) mg/dL Est Cr Clr Drug Dosing 29.72 mL/min Estimated GFR (MDRD) 35.8 ml/min Glucose 314 H (60-110) mg/dL POC Glucose 285 H (60-110) mg/dL Calcium 9.5 (8.8-10.8) mg/dL KOYR Results - Last 24 hrs: Microbiology 12/17/16 20:02 Aerobic Blood Culture - Preliminary Blood - Venous - Lab Draw NO GROWTH AFTER 1 DAY Anaerobic Blood Culture - Preliminary NO GROWTH AFTER 1 DAY 12/17/16 19:43 Aerobic Blood Culture - Preliminary Blood - Venous NO GROWTH AFTER 1 DAY Anaerobic Blood Culture - Preliminary NO GROWTH AFTER 1 DAY Med Orders - Current: Current Medications Albuterol/Ipratropium (Duoneb 3.0-0.5 Mg/3 Ml) 3 ml NEB Q6HRRT [facility] Last Admin: 12/19/16 06:57 Dose: 3 ml Atorvastatin Calcium (Lipitor) 40 mg PO BEDTIME [facility] Last Admin: 12/18/16 20:20 Dose: 40 mg Budesonide (Pulmicort) 0.5 mg INH BID [facility] Last Admin: 12/18/16 21:08 Dose: 0.5 mg Furosemide (Lasix) 40 mg IVPUSH BID [facility] Last Admin: 12/19/16 08:07 Dose: 40 mg Levofloxacin/Dextrose 750 mg/ (Premix) 150 mls @ 100 mls/hr IV Q48H [facility] Insulin Aspart (Novolog) 15 unit SUBCUT ACBREAKFAST [facility] Last Admin: 12/19/16 07:17 Dose: 15 units Insulin Aspart (Novolog) 17 unit SUBCUT BID@1130,1700 [facility] Last Admin: 12/18/16 16:43 Dose: 17 unit Insulin Glargine (Lantus Solostar) 45 units SUBCUT BEDTIME [facility] Last Admin: 12/18/16 20:17 Dose: 45 units Lisinopril (Prinivil) 5 mg PO DAILY [facility] Last Admin: 12/19/16 08:10 Dose: 5 mg Methylprednisolone Sodium Succinate (Solu-Medrol) 125 mg IVPUSH Q12H [facility] Last Admin: 12/19/16 08:07 Dose: 125 mg Montelukast Sodium (Singulair) 10 mg PO DAILY [facility] Last Admin: 12/19/16 08:07 Dose: 10 mg Formoterol [ (Perforomist] 20 Mcg) 1 each INH BID [facility] Last Admin: 12/18/16 20:24 Dose: Not Given Warfarin Sodium (Coumadin) 7.5 mg PO MoWeFr@2100 [facility] Last Admin: 12/18/16 20:20 Dose: 7.5 mg Warfarin Sodium (Coumadin) 5 mg PO SuTuThSa@2100 [facility] Last Admin: 12/17/16 22:57 Dose: 5 mg Discontinued Medications Albuterol/Ipratropium (Duoneb 3.0-0.5 Mg/3 Ml) 3 ml NEB ONETIME ONE Stop: 12/17/16 15:18 Last Admin: 12/17/16 15:37 Dose: 3 ml Albuterol/Ipratropium (Duoneb 3.0-0.5 Mg/3 Ml) 3 ml NEB ONETIME ONE Stop: 12/17/16 15:36 Last Admin: 12/17/16 15:41 Dose: 3 ml Enoxaparin Sodium (Lovenox) 40 mg SUBCUT DAILY [facility] Levofloxacin/Dextrose 750 mg/ (Premix) 150 mls @ 100 mls/hr IV ONETIME ONE Stop: 12/17/16 19:16 Last Admin: 12/17/16 18:10 Dose: 100 mls/hr Levofloxacin/Dextrose 750 mg/ (Premix) 150 mls @ 100 mls/hr IV Q24H [facility] Insulin Aspart (Novolog) 17 unit SUBCUT BIDAC [facility] Methylprednisolone Sodium Succinate (Solu-Medrol) 125 mg IVPUSH ONETIME ONE Stop: 12/17/16 15:19 Last Admin: 12/17/16 15:53 Dose: 125 mg Methylprednisolone Sodium Succinate (Solu-Medrol) 125 mg IVPUSH Q6H [facility] Methylprednisolone Sodium Succinate (Solu-Medrol) 125 mg IVPUSH Q12H [facility] Last Admin: 12/18/16 01:44 Dose: Not Given Warfarin Sodium (Coumadin) 5 mg PO BEDTIME [facility] *Q Meaningful Use (DIS) - VTE *Q VTE Criteria *Q: - Stroke *Q Stroke Criteria *Q: - AMI *Q AMI Criteria *Q:
[2016-12-19] MEDS ORDERED: Levofloxacin/Dextrose 5%-Water 750 MG in Premix Bag 1 BAG IV SCH (18:00)
--- NOTE | 2016-12-24 14:42 | ECHO ---
EXAM DATE: 12/17/16 PATIENT'S AGE: 56 The echocardiogram report can be seen in this patient's EMR (Electronic Medical Record) in the Reports section. The report has also been scanned into PACs. RUSLAN
== END 2016-12-19 11:28 | DRG 191 ==
LOC: MW.ED 14:32 → MW.MS 17:47
PROVIDERS: ADMIT Internal Medicine; ATTEND Internal Medicine
DX: J44.1 Chronic obstructive pulmonary disease with (acute) exacerbation (principal); I50.9 Heart failure, unspecified; I50.30 Unspecified diastolic (congestive) heart failure; K21.9 Gastro-esophageal reflux disease without esophagitis; I74.9 Embolism and thrombosis of unspecified artery; Z87.891 Personal history of nicotine dependence; I10 Essential (primary) hypertension; E11.9 Type 2 diabetes mellitus without complications; Z79.899 Other long term (current) drug therapy; Z79.4 Long term (current) use of insulin; Z79.01 Long term (current) use of anticoagulants; Z88.8 Allergy status to other drugs, medicaments and biological substances; Z86.711 Personal history of pulmonary embolism
CPT/HCPCS: 36415; 71010; 80053; 82962; 84484; 85025; 93005; 94640; 96374; 99285; J2930; 80048; 85610; 87040; 87070; 87077; 87186; 87205; 93306; 96375; 99284; A9270-GY; J1815-GY; J1940; J1956

== ENCOUNTER 2017-03-21 10:40 | Inpatient (IN) | payer MEDICAID ==
--- NOTE | 2017-03-21 11:02 | EDM.PDOC ---
ED HPI GENERAL MEDICAL PROBLEM - General Chief Complaint: Respiratory Problem Stated Complaint: AMB Time Seen by Provider: 03/21/17 10:45 Source of Information: Reports: Patient, Residential Records History Limitations: Reports: No Limitations - History of Present Illness INITIAL COMMENTS - FREE TEXT/NARRATIVE: HISTORY AND PHYSICAL: History of present illness: [Patient comes to the emergency room today with complaints of increased shortness of breath. She resides at the local skilled nursing and had an outpatient chest x-ray and labs yesterday and was diagnosed with bilateral lower lobe pneumonia. Today she has had increased difficulty breathing and is overall feeling worse. The skilled nursing called EMS to transport to the ER for evaluation. When she arrived to the emergency room her O2 sat was in the low 80s on 4 L of oxygen. She wears oxygen continuously and does well on 3 L usually at the skilled nursing. O2 is increased to 10L on nonrebreather mask. She has not had fever or chills. No runny nose or headache. No chest pain. No abd pain, nausea or vomiting. Denies swelling to her feet or lower legs. No muscle or joint aches or pains.] Review of systems: As per history of present illness and below otherwise all systems reviewed and negative. Past medical history: As per history of present illness and as reviewed below otherwise noncontributory. Surgical history: As per history of present illness and as reviewed below otherwise noncontributory. Social history: No reported history of drug or alcohol abuse. Family history: As per history of present illness and as reviewed below otherwise noncontributory. Physical exam: HEENT: Atraumatic, normocephalic. Mucous membranes are dry. throat clear, neck supple, nontender, trachea midline. Lungs: Diminished breath sounds throughout. No overt wheezing crackles or rales. Heart: S1S2, regular rate and rhythm. negative for clicks, rubs, or JVD. Abdomen: Obese. Soft, nondistended, nontender. Pelvis: Stable nontender. Genitourinary: Deferred. Rectal: Deferred. Extremities: Atraumatic, no cyanosis or edema to feet or lower legs. Neurovascular unremarkable. Neuro: Awake, alert, oriented. Motor and sensory unremarkable throughout. Exam nonfocal. Diagnostics: [CXR, CBC, lactic acid, troponin, ABG, BNP, Influenza A&B swab, CMP, blood cultures x 2, UA, type and screen] Therapeutics: [250mL bolus x 2] Impression: [pneumonia] Plan: [White blood cells 15.7, hemoglobin 8.9, lactate 3.4, B1 42, creatinine 2.1. BP improves with NS bolus. Dopamine was held. Patient's condition is discussed with DR. Preston, who is in the ER, agrees to accept patient to ICU. Dr. Preston is also notified of patient's hemoglobin level. IV antibiotics were started prior to patient's dismissal from the ER to [facility]. Patients in agreement with hospitalization stay. ] Definitive disposition and diagnosis as appropriate pending reevaluation and review of above. Sacral Pain Score (Numeric/FACES): 7 - Related Data Allergies Allergy/AdvReac Type Severity Reaction Status Date / Time erythromycin base Allergy Hives Verified 03/21/17 11:00 Home Meds: Home Meds Albuterol Sulfate 1 inh IH Q4H PRN 09/20/15 [History] Formoterol [Perforomist] 1 inh INH BID 09/20/15 [History] metFORMIN HCl [Metformin HCl] 1,000 mg PO BIDMEALS 09/20/15 [History] predniSONE 10 mg PO DAILY 09/20/15 [History] ALPRAZolam [Alprazolam] 0.5 mg PO Q8H PRN 12/17/16 [History] Acetaminophen [Tylenol] 2 tab PO Q4H PRN 12/17/16 [History] Alum Hydrox/Mag Hydrox/Simeth [Mag-Al Plus] 20 ml PO Q4H PRN 12/17/16 [History] Benzocaine [Oral Anesthetic] 1 applic TP QID PRN 12/17/16 [History] Budesonide [Pulmicort] 1 inh INH BID 12/17/16 [History] Cetirizine [ZyrTEC] 10 mg PO DAILY 12/17/16 [History] Cyclobenzaprine [Flexeril] 10 mg PO Q6H PRN 12/17/16 [History] Docusate Sodium 100 mg PO DAILY 12/17/16 [History] Furosemide [Lasix] 40 mg PO DAILY 12/17/16 [History] Insulin Aspart [NovoLOG] 15 unit SUBCUT ACBREAKFAST 12/17/16 [History] Insulin Aspart [NovoLOG] 17 unit SUBCUT ASDIRECTED 12/17/16 [History] Insulin Aspart [NovoLOG] 100 unit SUBCUT ASDIRECTED 12/17/16 [History] Insulin Glarg,Human.Rec.Analog [LantUS Solostar] 45 units SUBCUT BEDTIME [History] Ipratropium [place] 2.5 ml IH QID 12/17/16 [History] Lisinopril 5 mg PO DAILY 12/17/16 [History] Magnesium Hydroxide [Milk of Magnesia] 30 ml PO DAILY PRN 12/17/16 [History] Menthol [Biofreeze] 1 applic TP BID PRN 12/17/16 [History] Montelukast Sodium 10 mg PO DAILY 12/17/16 [History] Sertraline [Zoloft] 25 mg PO DAILY 12/17/16 [History] Trolamine Salicylate/Aloe Vera [Aspercreme 10%] 1 applic TP BID 12/17/16 [ History] atorvaSTATin [Lipitor] 40 mg PO BEDTIME 12/17/16 [History] oxyCODONE HCl/Acetaminophen [Oxycodone-Acetaminophen 5-300] 2 tab PO Q6H PRN 12/24 [History] Furosemide 80 mg PO DAILY 03/21/17 [History] Levofloxacin [Levaquin] 750 mg PO DAILY 03/21/17 [History] Omeprazole 20 mg PO DAILY 03/21/17 [History] Warfarin [Coumadin] 2.5 mg PO DAILY 03/21/17 [History] Past Medical History HEENT History: Reports: Allergic Rhinitis Cardiovascular History: Reports: Hypertension Respiratory History: Reports: Asthma, COPD Gastrointestinal History: Reports: GERD Musculoskeletal History: Reports: Osteoarthritis Endocrine/Metabolic History: Reports: Diabetes, Type II - Past Surgical History Cardiovascular Surgical History: Reports: None Social & Family History - Family History Family Medical History: Unobtainable - Tobacco Use Smoking Status *Q: Current Every Day Smoker Years of Tobacco use: 40 Packs/Tins Daily: 1 Used Tobacco, but Quit: Yes Month Tobacco Last Used: 09/2015 - Caffeine Use Caffeine Use: Reports: None - Recreational Drug Use Recreational Drug Use: No ED ROS GENERAL - Review of Systems Review Of Systems: ROS reveals no pertinent complaints other than HPI. ED EXAM, GENERAL - Physical Exam Exam: See Below Course - Vital Signs Last Recorded V/S: Last Vital Signs Temp 97.7 F 03/21/17 20:00 Pulse 112 H 03/21/17 20:00 Resp 18 03/21/17 20:00 BP 103/74 03/21/17 20:00 Pulse Ox 98 03/21/17 20:00 - Orders/Labs/Meds Orders: Active Orders 24 hr Category Date Time Status BIPAP Adult [RT BiPAP/CPAP] [RC] ASDIRECTED Care 03/21/17 11:58 Inactive CULTURE BLOOD [BC] Stat Lab 03/21/17 10:53 Received CULTURE BLOOD [BC] Stat Lab 03/21/17 11:18 Received Piperacillin/Tazobactam [Piperacil-Tazobact] 4.5 gm Med 03/21/17 12:15 Active Sodium Chloride 0.9% [Normal Saline] 100 ml IV Q6H Vancomycin Pharmacy to Dose [Pharmacy to Dose - Med 03/21/17 12:15 Active Vancomycin] 1 dose .XX ASDIRECTED Blood Culture x2 Reflex Set [OM.PC] Stat Oth 03/21/17 10:47 Ordered Transfuse Red Blood Cells [COMM] Stat Oth 03/21/17 12:00 Ordered Medication Orders Albuterol (Proventil Neb Soln) 2.5 mg INH Q4H PRN PRN Reason: Shortness of Breath Budesonide (Pulmicort) 0.5 mg INH BIDRT [facility] Last Admin: 03/21/17 20:06 Dose: 0.5 mg Piperacillin Sod/Tazobactam (Sod 4.5 gm/ Sodium Chloride) 100 mls @ 100 mls/hr IV Q6H [facility] Last Admin: 03/21/17 19:15 Dose: 100 mls/hr Infusion: 03/21/17 13:43 Dose: 100 mls/hr Admin: 03/21/17 12:43 Dose: 100 mls/hr Sodium Chloride (Normal Saline) 1,000 mls @ 10 mls/hr IV ASDIRECTED [facility] Last Admin: 03/21/17 12:43 Dose: 10 mls/hr Vancomycin HCl 1,500 mg/ (Sodium Chloride) 500 mls @ 250 mls/hr IV Q24H [facility] Last Admin: 03/21/17 14:30 Dose: 250 mls/hr Sodium Chloride (Normal Saline) 500 mls @ 500 mls/hr IV .BOLUS [facility] Last Admin: 03/21/17 14:30 Dose: 500 mls/hr Levofloxacin/Dextrose 750 mg/ (Premix) 150 mls @ 100 mls/hr IV Q48H [facility] Last Admin: 03/21/17 17:25 Dose: 100 mls/hr Insulin Aspart (Novolog) 0 unit SUBCUT TIDAC [facility] PRN Reason: Protocol Last Admin: 03/21/17 17:25 Dose: 2 units Insulin Glargine (Lantus Solostar) 30 units SUBCUT BEDTIME [facility] Last Admin: 03/21/17 20:06 Dose: 30 units Warfarin, Pharmacy (To Dose) 0 each .XX DAILY@1400 [facility] Ondansetron HCl (Zofran) 4 mg IVPUSH Q4H PRN PRN Reason: Nausea Prednisone (Prednisone) 10 mg PO DAILY [facility] Vancomycin HCl (Pharmacy To Dose - Vancomycin) 1 dose .XX ASDIRECTED [facility] Warfarin Sodium (Coumadin) 2.5 mg PO DAILY@1400 [facility] Labs: Laboratory Tests 03/21/17 03/21/17 03/21/17 Range/Units 10:53 10:53 10:53 WBC 15.74 H (4.0-11.0) K/uL RBC 3.19 L (4.30-5.90) M/uL Hgb 8.9 L (12.0-16.0) g/dL Hct 29.3 L (36.0-46.0) % MCV 91.8 (80.0-98.0) fL MCH 27.9 (27.0-32.0) pg MCHC 30.4 L (31.0-37.0) g/dL RDW Std Deviation 56.6 (28.0-62.0) fl RDW Coeff of Jhon 17 H (11.0-15.0) % Plt Count 276 (150-400) K/uL MPV 9.30 (7.40-12.00) fL Neut % (Auto) 84.0 H (48.0-80.0) % Lymph % (Auto) 6.4 L (16.0-40.0) % [place] % (Auto) 9.3 (0.0-15.0) % Eos % (Auto) 0.1 (0.0-7.0) % Baso % (Auto) 0.2 (0.0-1.5) % Neut # (Auto) 13.2 H (1.4-5.7) K/uL Lymph # (Auto) 1.0 (0.6-2.4) K/uL [place] # (Auto) 1.5 H (0.0-0.8) K/uL Eos # (Auto) 0.0 (0.0-0.7) K/uL Baso # (Auto) 0.0 (0.0-0.1) K/uL Nucleated RBC % 0.0 /100WBC Nucleated RBCs # 0 K/uL INR (0.86-1.11) Lactate 3.4 H (0.20-2.00) mmol/L Sodium 141 (136-146) mmol/L Potassium 4.2 (3.5-5.1) mmol/L Chloride 94 L (98-110) mmol/L Carbon Dioxide 34 H (21-31) mmol/L BUN 42 H (6.0-23.0) mg/dL Creatinine 2.1 H (0.6-1.5) mg/dL Est Cr Clr Drug Dosing TNP Estimated GFR (MDRD) 24.3 ml/min Glucose 203 H (60-110) mg/dL Calcium 9.5 (8.8-10.8) mg/dL Total Bilirubin 0.7 (0.1-1.5) mg/dL AST 13 (5-40) IU/L ALT 23 (8-54) IU/L Alkaline Phosphatase 64 (40-150) Troponin I < 0.10 (0.0-0.29) NG/ML B-Natriuretic Peptide (<100) PG/ML Total Protein 7.0 (6.0-8.0) g/dL Albumin 3.7 (3.5-5.0) g/dL Globulin 3.3 (2.0-3.5) g/dL Albumin/Globulin Ratio 1.1 L (1.3-2.8) 03/21/17 03/21/17 Range/Units 10:53 10:53 WBC (4.0-11.0) K/uL RBC (4.30-5.90) M/uL Hgb (12.0-16.0) g/dL Hct (36.0-46.0) % MCV (80.0-98.0) fL MCH (27.0-32.0) pg MCHC (31.0-37.0) g/dL RDW Std Deviation (28.0-62.0) fl RDW Coeff of Jhon (11.0-15.0) % Plt Count (150-400) K/uL MPV (7.40-12.00) fL Neut % (Auto) (48.0-80.0) % Lymph % (Auto) (16.0-40.0) % [place] % (Auto) (0.0-15.0) % Eos % (Auto) (0.0-7.0) % Baso % (Auto) (0.0-1.5) % Neut # (Auto) (1.4-5.7) K/uL Lymph # (Auto) (0.6-2.4) K/uL [place] # (Auto) (0.0-0.8) K/uL Eos # (Auto) (0.0-0.7) K/uL Baso # (Auto) (0.0-0.1) K/uL Nucleated RBC % /100WBC Nucleated RBCs # K/uL INR 2.95 H (0.86-1.11) Lactate (0.20-2.00) mmol/L Sodium (136-146) mmol/L Potassium (3.5-5.1) mmol/L Chloride (98-110) mmol/L Carbon Dioxide (21-31) mmol/L BUN (6.0-23.0) mg/dL Creatinine (0.6-1.5) mg/dL Est Cr Clr Drug Dosing Estimated GFR (MDRD) ml/min Glucose (60-110) mg/dL Calcium (8.8-10.8) mg/dL Total Bilirubin (0.1-1.5) mg/dL AST (5-40) IU/L ALT (8-54) IU/L Alkaline Phosphatase (40-150) Troponin I (0.0-0.29) NG/ML B-Natriuretic Peptide 50 (<100) PG/ML Total Protein (6.0-8.0) g/dL Albumin (3.5-5.0) g/dL Globulin (2.0-3.5) g/dL Albumin/Globulin Ratio (1.3-2.8) Meds: Medications Generic Name Dose Route Start Last Admin Trade Name Freq PRN Reason Stop Dose Admin Albuterol 2.5 mg 03/21/17 17:58 Proventil Neb Soln INH Q4H PRN Shortness of Breath Budesonide 0.5 mg 03/21/17 21:00 03/21/17 20:06 Pulmicort INH 0.5 mg BIDRT GABRIELLA Administration Piperacillin Sod/Tazobactam 100 mls @ 100 mls/hr 03/21/17 12:15 03/21/17 19: 15 Sod 4.5 gm/ Sodium Chloride IV 100 mls/hr Q6H GABRIELLA Administration Sodium Chloride 1,000 mls @ 10 mls/hr 03/21/17 13:15 03/21/17 12:43 Normal Saline IV 10 mls/hr ASDIRECTED GABRIELLA Administration Vancomycin HCl 1,500 mg/ 500 mls @ 250 mls/hr 03/21/17 14:30 03/21/17 14:30 Sodium Chloride IV 250 mls/hr Q24H G[facility]ELLA Administration Sodium Chloride 500 mls @ 500 mls/hr 03/21/17 14:15 03/21/17 14:30 Normal Saline IV 500 mls/hr .BOLUS GABRIELLA Administration Levofloxacin/Dextrose 750 mg/ 150 mls @ 100 mls/hr 03/21/17 16:30 03/21/17 17 :25 Premix IV 100 mls/hr Q48H G[facility]RIELLA Administration Insulin Aspart 0 unit 03/21/17 17:00 03/21/17 17:25 Novolog SUBCUT 2 units TIDAC [facility] Administration Protocol Insulin Glargine 30 units 03/21/17 21:00 03/21/17 20:06 Lantus Solostar SUBCUT 30 units BEDTIME [facility]ELLA Administration Warfarin, Pharmacy 0 each 03/22/17 09:00 To Dose .XX DAILY@1400 [facility] Ondansetron HCl 4 mg 03/21/17 12:36 Zofran IVPUSH Q4H PRN Nausea Prednisone 10 mg 03/22/17 09:00 Prednisone PO DAILY [facility] Vancomycin HCl 1 dose 03/21/17 12:15 Pharmacy To Dose - Vancomycin .XX ASDIRECTED [facility] Warfarin Sodium 2.5 mg 03/22/17 14:00 Coumadin PO DAILY@1400 [facility] Discontinued Medications Generic Name Dose Route Start Last Admin Trade Name Freq PRN Reason Stop Dose Admin Sodium Chloride 1,000 mls @ 250 mls/hr 03/21/17 11:03 03/21/17 11:31 Normal Saline IV 03/21/17 15:02 999 mls/hr STAT ONE Administration Levofloxacin/Dextrose 750 mg/ 150 mls @ 100 mls/hr 03/21/17 11:54 03/21/17 14 :22 Premix IV 03/21/17 13:23 Not Given ONETIME ONE Dopamine HCl/Dextrose 250 mls @ 0 mls/hr 03/21/17 12:00 Dopamine In D5w 400 Mg/250 Ml IV TITRATE [facility]RIELLA Protocol 5 MCG/KG/MIN Insulin Glargine 45 units 03/21/17 21:00 Lantus Solostar SUBCUT BEDTIME [facility] Warfarin Pharmacy To 0 each 03/22/17 14:00 Dose .XX DAILY [facility]ELLA Departure - Departure Time of Disposition: 12:13 Disposition: Admitted As Inpatient 65 Condition: Fair Clinical Impression: Pneumonia - Discharge Information - My Orders Last 24 Hours: My Active Orders 03/21/17 10:47 Blood Culture x2 Reflex Set [OM.PC] Stat 03/21/17 10:53 CULTURE BLOOD [BC] Stat 03/21/17 11:18 CULTURE BLOOD [BC] Stat 03/21/17 11:58 BIPAP Adult [RT BiPAP/CPAP] [RC] ASDIRECTED 03/21/17 12:00 Transfuse Red Blood Cells [COMM] Stat - Assessment/Plan Last 24 Hours: My Active Orders 03/21/17 10:47 Blood Culture x2 Reflex Set [OM.PC] Stat 03/21/17 10:53 CULTURE BLOOD [BC] Stat 03/21/17 11:18 CULTURE BLOOD [BC] Stat 03/21/17 11:58 BIPAP Adult [RT BiPAP/CPAP] [RC] ASDIRECTED 03/21/17 12:00 Transfuse Red Blood Cells [COMM] Stat
[2017-03-21] MEDS ORDERED: Sodium Chloride 0.9% 1,000 ML IV ONE (11:03)
[2017-03-21 11:37] LABS: CHLORIDE,CL 94 mmol/L (98-110); SODIUM,NA 141 mmol/L (136-146)
[2017-03-21] MEDS ORDERED: Levofloxacin/Dextrose 5%-Water 750 MG in Premix Bag 1 BAG IV ONE (11:54)
[2017-03-21] MEDS ORDERED: DOPamine/Dextrose 5%-Water 250 ML IV SCH (12:00)
--- NOTE | 2017-03-21 12:27 | CR ---
EXAMINATION: Two-view chest (PA and Lateral views). HISTORY: Shortness of breath. Comparison: 12/17/2016. FINDINGS: The trachea is midline. The cardiomediastinal silhouette is within normal limits. Hazy opacities note d within the lung bases bilaterally, similar in appearance to the previous radiograph. There is howev er blunting of the lung bases on the lateral images. Chronic interstitial prominence noted. Osseous structures appear unremarkable. IMPRESSION: 1. Mild bibasilar atelectasis and/or infiltrate.
[2017-03-21] MEDS ORDERED: Ondansetron 4 MG/2 ML SDV IVPUSH PRN (12:36)
[2017-03-21] MEDS: Piperacillin/Tazobactam 4.5 GM in Sodium Chloride 0.9% 100 ML IV SCH ×3 (12:43→23:37)
--- NOTE | 2017-03-21 12:45 | PCM.HP ---
H&P History of Present Illness - General Admit Problem/Dx: Admission Diagnosis/Problem Admission Diagnosis/Problem Pneumonia - History of Present Illness Initial Comments - Free Text/Narative: 56 yo female wiht pmh of chronic respiratory failure, COPD, CHF with preserved EF, pulmonary embolism on coumadin, DM who presented to the ED from [facility] with complaint of shortness of breath. She was started on levaquin for bibasilar pneumonia but today her symptoms worsened. She complaints of cough, chills, and shortness of breath. She denies any chest pain , blood in stool, or abdominal pain. In the ED she was noted to be hypoxic and requiring 10 liters via face mask. Her blood pressure did drop to 60s/40s but did improve to 110s/50s with 500 ml fluid bolus. CXR reported bibasilar infiltrates. Sacral Pain Score (Numeric/FACES): 7 - Related Data Allergies/Adverse Reactions: Allergies Allergy/AdvReac Type Severity Reaction Status Date / Time erythromycin base Allergy Hives Verified 03/21/17 11:00 Home Medications: Home Meds Albuterol Sulfate 1 inh IH Q4H PRN 09/20/15 [History] Formoterol [Perforomist] 1 inh INH BID 09/20/15 [History] metFORMIN HCl [Metformin HCl] 1,000 mg PO BIDMEALS 09/20/15 [History] predniSONE 10 mg PO DAILY 09/20/15 [History] ALPRAZolam [Alprazolam] 0.5 mg PO Q8H PRN 12/17/16 [History] Acetaminophen [Tylenol] 2 tab PO Q4H PRN 12/17/16 [History] Alum Hydrox/Mag Hydrox/Simeth [Mag-Al Plus] 20 ml PO Q4H PRN 12/17/16 [History] Benzocaine [Oral Anesthetic] 1 applic TP QID PRN 12/17/16 [History] Budesonide [Pulmicort] 1 inh INH BID 12/17/16 [History] Cetirizine [ZyrTEC] 10 mg PO DAILY 12/17/16 [History] Cyclobenzaprine [Flexeril] 10 mg PO Q6H PRN 12/17/16 [History] Docusate Sodium 100 mg PO DAILY 12/17/16 [History] Furosemide [Lasix] 40 mg PO DAILY 12/17/16 [History] Insulin Aspart [NovoLOG] 15 unit SUBCUT ACBREAKFAST 12/17/16 [History] Insulin Aspart [NovoLOG] 17 unit SUBCUT ASDIRECTED 12/17/16 [History] Insulin Aspart [NovoLOG] 100 unit SUBCUT ASDIRECTED 12/17/16 [History] Insulin Glarg,Human.Rec.Analog [LantUS Solostar] 45 units SUBCUT BEDTIME [History] Ipratropium [place] 2.5 ml IH QID 12/17/16 [History] Lisinopril 5 mg PO DAILY 12/17/16 [History] Magnesium Hydroxide [Milk of Magnesia] 30 ml PO DAILY PRN 12/17/16 [History] Menthol [Biofreeze] 1 applic TP BID PRN 12/17/16 [History] Montelukast Sodium 10 mg PO DAILY 12/17/16 [History] Sertraline [Zoloft] 25 mg PO DAILY 12/17/16 [History] Trolamine Salicylate/Aloe Vera [Aspercreme 10%] 1 applic TP BID 12/17/16 [ History] atorvaSTATin [Lipitor] 40 mg PO BEDTIME 12/17/16 [History] oxyCODONE HCl/Acetaminophen [Oxycodone-Acetaminophen 5-300] 2 tab PO Q6H PRN 12/24 [History] Furosemide 80 mg PO DAILY 03/21/17 [History] Levofloxacin [Levaquin] 750 mg PO DAILY 03/21/17 [History] Omeprazole 20 mg PO DAILY 03/21/17 [History] Warfarin [Coumadin] 2.5 mg PO DAILY 03/21/17 [History] Past Medical History HEENT History: Reports: Allergic Rhinitis Cardiovascular History: Reports: Hypertension Respiratory History: Reports: Asthma, COPD Gastrointestinal History: Reports: GERD Musculoskeletal History: Reports: Osteoarthritis Psychiatric History: Reports: Anxiety Endocrine/Metabolic History: Reports: Diabetes, Type II - Infectious Disease History Infectious Disease History: Reports: Chicken Pox - Past Surgical History Cardiovascular Surgical History: Reports: None Social & Family History - Family History Family Medical History: Unobtainable - Tobacco Use Smoking Status *Q: Current Every Day Smoker Years of Tobacco use: 40 Packs/Tins Daily: 1 Used Tobacco, but Quit: Yes Month Tobacco Last Used: 09/2015 - Caffeine Use Caffeine Use: Reports: None - Recreational Drug Use Recreational Drug Use: No H&P Review of Systems - Review of Systems: Review Of Systems: ROS reveals no pertinent complaints other than HPI. Exam - Exam Exam: See Below - Vital Signs Vital Signs: Last Vital Signs Temp 36.2 C 03/21/17 10:43 Pulse 125 H 03/21/17 11:54 Resp 20 03/21/17 11:54 BP 66/41 L 03/21/17 11:54 Pulse Ox 96 03/21/17 11:54 - Exam General: Alert, Oriented Lungs: Normal Respiratory Effort, Decreased Breath Sounds. No: Wheezing Cardiovascular: Regular Rate, Regular Rhythm GI/Abdominal Exam: Soft, Non-Tender Extremities: Pedal Edema (+1 edema) Skin: Warm, Dry - Patient Data Result Diagrams: 03/22/17 05:35 03/22/17 05:35 *Q Meaningful Use (ADM) - VTE *Q VTE Criteria *Q: - Stroke *Q Stroke Criteria *Q: - AMI *Q AMI Criteria *Q: Problem List Initiated/Reviewed/Updated: Yes Orders Last 24hrs: Active Orders 24 hr Category Date Time Status Antiembolic Devices [RC] PER UNIT ROUTINE Care 03/21/17 12:39 Ordered EKG Documentation Completion [RC] STAT Care 03/21/17 12:34 Active Oxygen Therapy [RC] PRN Care 03/21/17 12:36 Ordered VTE/DVT Education [RC] PER UNIT ROUTINE Care 03/21/17 12:36 Ordered Vital Signs [RC] Q4H Care 03/21/17 12:36 Ordered [place] Diet [DIET] Diet 03/21/17 Breakfast Ordered CBC WITH AUTO DIFF [HEME] AM Lab 03/22/17 05:11 Ordered CBC WITH AUTO DIFF [HEME] AM Lab 03/23/17 05:11 Ordered CBC WITH AUTO DIFF [HEME] AM Lab 03/24/17 05:11 Ordered CBC WITH AUTO DIFF [HEME] AM Lab 03/25/17 05:11 Ordered COMPREHENSIVE METABOLIC PN,CMP [CHEM] AM Lab 03/22/17 05:11 Ordered COMPREHENSIVE METABOLIC PN,CMP [CHEM] AM Lab 03/23/17 05:11 Ordered COMPREHENSIVE METABOLIC PN,CMP [CHEM] AM Lab 03/24/17 05:11 Ordered COMPREHENSIVE METABOLIC PN,CMP [CHEM] AM Lab 03/25/17 05:11 Ordered CULTURE SPUTUM + SMEAR [RM] Stat Lab 03/21/17 12:28 Uncollected CULTURE URINE [RM] Routine Lab 03/21/17 12:27 Uncollected INFLUENZA A+B AG SCREEN [RM] Stat Lab 03/21/17 12:28 Uncollected LACTIC ACID,WHOLE BLOOD [BG] Q6H Lab 03/21/17 16:00 Ordered LACTIC ACID,WHOLE BLOOD [BG] Q6H Lab 03/21/17 22:00 Ordered LACTIC ACID,WHOLE BLOOD [BG] Q6H Lab 03/22/17 04:00 Ordered LACTIC ACID,WHOLE BLOOD [BG] Q6H Lab 03/22/17 10:00 Ordered Ondansetron [Zofran] Med 03/21/17 12:36 Ordered 4 mg IVPUSH Q4H PRN Sequential Compression Device [OM.PC] Per Unit Routine Oth 03/21/17 12:39 Ordered Resuscitation Status Routine Resus Stat 03/21/17 12:36 Ordered Medication Orders Sodium Chloride (Normal Saline) 1,000 mls @ 250 mls/hr IV STAT ONE Stop: 03/21/17 15:02 Last Admin: 03/21/17 11:31 Dose: 999 mls/hr Dopamine HCl/Dextrose (Dopamine In D5w 400 Mg/250 Ml) 250 mls @ 0 mls/hr IV TITRATE GABRIELLA; 5 MCG/KG/MIN PRN Reason: Protocol Piperacillin Sod/Tazobactam (Sod 4.5 gm/ Sodium Chloride) 100 mls @ 100 mls/hr IV Q6H [facility] Vancomycin HCl (Pharmacy To Dose - Vancomycin) 1 dose .XX ASDIRECTED [facility] Assessment/Plan Comment:: 56 yo female who presents with shortness of breath, hypoxia and hypotension concerning for health care associated pneumonia. Sepsis: will continue rescucitative measures and watch for sings of fluid overload due to history of CHF, trend lactic acid Pneumonia: on Vncomycin, zosyn, and levaquin. Sputum and blood cultures pending. Influenza screen pending CHF: hold lasix for now DM: place on slidding scale insulin History of PE: check INR as patient is on coumadin
[2017-03-21] MEDS ORDERED: Sodium Chloride 0.9% 1,000 ML IV SCH (13:15)
[2017-03-21] MEDS ORDERED: Sodium Chloride 0.9% 500 ML IV SCH (14:15)
[2017-03-21] MEDS ORDERED: Levofloxacin/Dextrose 5%-Water 750 MG in Premix Bag 1 BAG IV SCH (16:30)
[2017-03-21] MEDS ORDERED: Insulin Aspart 100 Units/ML 3 ML Pen SUBCUT SCH (17:00)
[2017-03-21] MEDS ORDERED: Albuterol 0.083% 2.5 MG/3 ML Neb Soln INH PRN (17:58)
[2017-03-21] MEDS: Insulin Glargine,Human Rec. Analog 100 Units/ML 3 ML Pen SUBCUT SCH (20:06)
[2017-03-21] MEDS: Budesonide 0.5 MG/2 ML Neb Susp INH SCH (20:06)
[2017-03-21] MEDS ORDERED: Insulin Glargine,Human Rec. Analog 100 Units/ML 3 ML Pen SUBCUT SCH (21:00)
[2017-03-21] MEDS: Insulin Aspart 100 Units/ML 3 ML Pen SUBCUT SCH (22:26)
[2017-03-22] MEDS: Budesonide 0.5 MG/2 ML Neb Susp INH SCH ×2 (05:08→20:12)
[2017-03-22] MEDS: Piperacillin/Tazobactam 4.5 GM in Sodium Chloride 0.9% 100 ML IV SCH (05:15)
[2017-03-22] MEDS: Insulin Aspart 100 Units/ML 3 ML Pen SUBCUT SCH ×4 (07:16→20:05)
[2017-03-22] MEDS ORDERED: methylPREDNISolone Sodium Succinate 125 MG/2 ML SDV IVPUSH SCH (08:45)
--- NOTE | 2017-03-22 08:50 | PCM.PN ---
- Review of Systems Systems Review Comment:: patient somnolescent this morning setting up and tripoding, - Patient Data Vitals - Most Recent: Last Vital Signs Temp 36.6 C 03/22/17 04:00 Pulse 116 H 03/22/17 06:00 Resp 20 03/22/17 06:00 BP 107/59 L 03/22/17 06:00 Pulse Ox 99 03/22/17 06:00 Weight - Most Recent: 99.3 kg I&O - Last 24 Hours: Intake & Output 03/21/17 03/22/17 03/22/17 22:59 06:59 14:59 Intake Total 1150 263 Output Total 100 200 Balance 1050 63 Lab Results Last 24 Hours: Laboratory Results - last 24 hr 03/21/17 03/21/17 03/21/17 Range/Units 12:40 12:48 16:25 WBC (4.0-11.0) K/uL RBC (4.30-5.90) M/uL Hgb (12.0-16.0) g/dL Hct (36.0-46.0) % MCV (80.0-98.0) fL MCH (27.0-32.0) pg MCHC (31.0-37.0) g/dL RDW Std Deviation (28.0-62.0) fl RDW Coeff of Jhon (11.0-15.0) % Plt Count (150-400) K/uL MPV (7.40-12.00) fL Neut % (Auto) (48.0-80.0) % Lymph % (Auto) (16.0-40.0) % [place] % (Auto) (0.0-15.0) % Eos % (Auto) (0.0-7.0) % Baso % (Auto) (0.0-1.5) % Neut # (Auto) (1.4-5.7) K/uL Lymph # (Auto) (0.6-2.4) K/uL [place] # (Auto) (0.0-0.8) K/uL Eos # (Auto) (0.0-0.7) K/uL Baso # (Auto) (0.0-0.1) K/uL Nucleated RBC % /100WBC Nucleated RBCs # K/uL INR (0.86-1.11) ABG pH 7.273 L (7.35-7.45) ABG pCO2 82 H (35-45) mmHG ABG pO2 47 L (75-100) mmHG ABG HCO3 38 H (22-26) mEq/L ABG Total CO2 36.9 ABG Base Excess 9.1 H (-2.0-2.0) Lactate 1.1 (0.20-2.00) mmol/L Sodium (136-146) mmol/L Potassium (3.5-5.1) mmol/L Chloride (98-110) mmol/L Carbon Dioxide (21-31) mmol/L BUN (6.0-23.0) mg/dL Creatinine (0.6-1.5) mg/dL Est Cr Clr Drug Dosing mL/min Estimated GFR (MDRD) ml/min Glucose (60-110) mg/dL POC Glucose (60-110) mg/dL Calcium (8.8-10.8) mg/dL Total Bilirubin (0.1-1.5) mg/dL AST (5-40) IU/L ALT (8-54) IU/L Alkaline Phosphatase (40-150) Total Protein (6.0-8.0) g/dL Albumin (3.5-5.0) g/dL Globulin (2.0-3.5) g/dL Albumin/Globulin Ratio (1.3-2.8) Urine Color Urine Appearance Urine pH (5.0-8.0) Ur Specific [place] (1.001-1.035) Urine Protein (NEGATIVE) mg/dL Urine Glucose (UA) (NEGATIVE) mg/dL Urine Ketones (NEGATIVE) mg/dL Urine Occult Blood (NEGATIVE) Urine Nitrite (NEGATIVE) Urine Bilirubin (NEGATIVE) Urine Urobilinogen (<2.0) EU/dL Ur Leukocyte Esterase (NEGATIVE) Urine RBC (0-2/HPF) Urine WBC (0-5/HPF) Ur Epithelial Cells (NONE-FEW) Urine Bacteria (NEGATIVE) Blood Type O POSITIVE 03/21/17 03/21/17 03/21/17 Range/Units 16:46 17:25 20:04 WBC (4.0-11.0) K/uL RBC (4.30-5.90) M/uL Hgb (12.0-16.0) g/dL Hct (36.0-46.0) % MCV (80.0-98.0) fL MCH (27.0-32.0) pg MCHC (31.0-37.0) g/dL RDW Std Deviation (28.0-62.0) fl RDW Coeff of Jhon (11.0-15.0) % Plt Count (150-400) K/uL MPV (7.40-12.00) fL Neut % (Auto) (48.0-80.0) % Lymph % (Auto) (16.0-40.0) % [place] % (Auto) (0.0-15.0) % Eos % (Auto) (0.0-7.0) % Baso % (Auto) (0.0-1.5) % Neut # (Auto) (1.4-5.7) K/uL Lymph # (Auto) (0.6-2.4) K/uL [place] # (Auto) (0.0-0.8) K/uL Eos # (Auto) (0.0-0.7) K/uL Baso # (Auto) (0.0-0.1) K/uL Nucleated RBC % /100WBC Nucleated RBCs # K/uL INR (0.86-1.11) ABG pH (7.35-7.45) ABG pCO2 (35-45) mmHG ABG pO2 (75-100) mmHG ABG HCO3 (22-26) mEq/L ABG Total CO2 ABG Base Excess (-2.0-2.0) Lactate (0.20-2.00) mmol/L Sodium (136-146) mmol/L Potassium (3.5-5.1) mmol/L Chloride (98-110) mmol/L Carbon Dioxide (21-31) mmol/L BUN (6.0-23.0) mg/dL Creatinine (0.6-1.5) mg/dL Est Cr Clr Drug Dosing mL/min Estimated GFR (MDRD) ml/min Glucose (60-110) mg/dL POC Glucose 217 H 232 H (60-110) mg/dL Calcium (8.8-10.8) mg/dL Total Bilirubin (0.1-1.5) mg/dL AST (5-40) IU/L ALT (8-54) IU/L Alkaline Phosphatase (40-150) Total Protein (6.0-8.0) g/dL Albumin (3.5-5.0) g/dL Globulin (2.0-3.5) g/dL Albumin/Globulin Ratio (1.3-2.8) Urine Color YELLOW Urine Appearance CLEAR Urine pH 5.5 (5.0-8.0) Ur Specific [place] 1.025 (1.001-1.035) Urine Protein TRACE (NEGATIVE) mg/dL Urine Glucose (UA) NEGATIVE (NEGATIVE) mg/dL Urine Ketones NEGATIVE (NEGATIVE) mg/dL Urine Occult Blood NEGATIVE (NEGATIVE) Urine Nitrite NEGATIVE (NEGATIVE) Urine Bilirubin NEGATIVE (NEGATIVE) Urine Urobilinogen 0.2 (<2.0) EU/dL Ur Leukocyte Esterase NEGATIVE (NEGATIVE) Urine RBC 0-1 (0-2/HPF) Urine WBC 0-2 (0-5/HPF) Ur Epithelial Cells MODERATE (NONE-FEW) Urine Bacteria 1+ H (NEGATIVE) Blood Type 03/22/17 03/22/17 03/22/17 Range/Units 05:35 05:35 05:35 WBC 16.70 H (4.0-11.0) K/uL RBC 2.95 L (4.30-5.90) M/uL Hgb 8.2 L (12.0-16.0) g/dL Hct 27.6 L (36.0-46.0) % MCV 93.6 (80.0-98.0) fL MCH 27.8 (27.0-32.0) pg MCHC 29.7 L (31.0-37.0) g/dL RDW Std Deviation 57.9 (28.0-62.0) fl RDW Coeff of Jhon 17 H (11.0-15.0) % Plt Count 276 (150-400) K/uL MPV 9.50 (7.40-12.00) fL Neut % (Auto) 85.6 H (48.0-80.0) % Lymph % (Auto) 5.3 L (16.0-40.0) % [place] % (Auto) 8.9 (0.0-15.0) % Eos % (Auto) 0.1 (0.0-7.0) % Baso % (Auto) 0.1 (0.0-1.5) % Neut # (Auto) 14.3 H (1.4-5.7) K/uL Lymph # (Auto) 0.9 (0.6-2.4) K/uL [place] # (Auto) 1.5 H (0.0-0.8) K/uL Eos # (Auto) 0.0 (0.0-0.7) K/uL Baso # (Auto) 0.0 (0.0-0.1) K/uL Nucleated RBC % 0.0 /100WBC Nucleated RBCs # 0 K/uL INR 2.67 H (0.86-1.11) ABG pH (7.35-7.45) ABG pCO2 (35-45) mmHG ABG pO2 (75-100) mmHG ABG HCO3 (22-26) mEq/L ABG Total CO2 ABG Base Excess (-2.0-2.0) Lactate (0.20-2.00) mmol/L Sodium 141 (136-146) mmol/L Potassium 4.8 (3.5-5.1) mmol/L Chloride 96 L (98-110) mmol/L Carbon Dioxide 31 (21-31) mmol/L BUN 48 H (6.0-23.0) mg/dL Creatinine 2.5 H (0.6-1.5) mg/dL Est Cr Clr Drug Dosing 17.83 mL/min Estimated GFR (MDRD) 19.9 ml/min Glucose 208 H (60-110) mg/dL POC Glucose (60-110) mg/dL Calcium 8.9 (8.8-10.8) mg/dL Total Bilirubin 0.5 (0.1-1.5) mg/dL AST 16 (5-40) IU/L ALT 21 (8-54) IU/L Alkaline Phosphatase 63 (40-150) Total Protein 6.8 (6.0-8.0) g/dL Albumin 3.6 (3.5-5.0) g/dL Globulin 3.2 (2.0-3.5) g/dL Albumin/Globulin Ratio 1.1 L (1.3-2.8) Urine Color Urine Appearance Urine pH (5.0-8.0) Ur Specific [place] (1.001-1.035) Urine Protein (NEGATIVE) mg/dL Urine Glucose (UA) (NEGATIVE) mg/dL Urine Ketones (NEGATIVE) mg/dL Urine Occult Blood (NEGATIVE) Urine Nitrite (NEGATIVE) Urine Bilirubin (NEGATIVE) Urine Urobilinogen (<2.0) EU/dL Ur Leukocyte Esterase (NEGATIVE) Urine RBC (0-2/HPF) Urine WBC (0-5/HPF) Ur Epithelial Cells (NONE-FEW) Urine Bacteria (NEGATIVE) Blood Type 03/22/17 03/22/17 Range/Units 05:35 08:00 WBC (4.0-11.0) K/uL RBC (4.30-5.90) M/uL Hgb (12.0-16.0) g/dL Hct (36.0-46.0) % MCV (80.0-98.0) fL MCH (27.0-32.0) pg MCHC (31.0-37.0) g/dL RDW Std Deviation (28.0-62.0) fl RDW Coeff of Jhon (11.0-15.0) % Plt Count (150-400) K/uL MPV (7.40-12.00) fL Neut % (Auto) (48.0-80.0) % Lymph % (Auto) (16.0-40.0) % [place] % (Auto) (0.0-15.0) % Eos % (Auto) (0.0-7.0) % Baso % (Auto) (0.0-1.5) % Neut # (Auto) (1.4-5.7) K/uL Lymph # (Auto) (0.6-2.4) K/uL [place] # (Auto) (0.0-0.8) K/uL Eos # (Auto) (0.0-0.7) K/uL Baso # (Auto) (0.0-0.1) K/uL Nucleated RBC % /100WBC Nucleated RBCs # K/uL INR (0.86-1.11) ABG pH 7.120 L* (7.35-7.45) ABG pCO2 116 H (35-45) mmHG ABG pO2 165 H (75-100) mmHG ABG HCO3 38 H (22-26) mEq/L ABG Total CO2 41 ABG Base Excess 7 H (-2.0-2.0) Lactate (0.20-2.00) mmol/L Sodium (136-146) mmol/L Potassium (3.5-5.1) mmol/L Chloride (98-110) mmol/L Carbon Dioxide (21-31) mmol/L BUN (6.0-23.0) mg/dL Creatinine (0.6-1.5) mg/dL Est Cr Clr Drug Dosing mL/min Estimated GFR (MDRD) ml/min Glucose (60-110) mg/dL POC Glucose 204 H (60-110) mg/dL Calcium (8.8-10.8) mg/dL Total Bilirubin (0.1-1.5) mg/dL AST (5-40) IU/L ALT (8-54) IU/L Alkaline Phosphatase (40-150) Total Protein (6.0-8.0) g/dL Albumin (3.5-5.0) g/dL Globulin (2.0-3.5) g/dL Albumin/Globulin Ratio (1.3-2.8) Urine Color Urine Appearance Urine pH (5.0-8.0) Ur Specific [place] (1.001-1.035) Urine Protein (NEGATIVE) mg/dL Urine Glucose (UA) (NEGATIVE) mg/dL Urine Ketones (NEGATIVE) mg/dL Urine Occult Blood (NEGATIVE) Urine Nitrite (NEGATIVE) Urine Bilirubin (NEGATIVE) Urine Urobilinogen (<2.0) EU/dL Ur Leukocyte Esterase (NEGATIVE) Urine RBC (0-2/HPF) Urine WBC (0-5/HPF) Ur Epithelial Cells (NONE-FEW) Urine Bacteria (NEGATIVE) Blood Type George Results Last 24 Hours: Microbiology 03/21/17 15:20 Influenza Type A Antigen Screen - Final Nasopharyngeal Swab - Nare, Right NEGATIVE INFLUENZA A VIRUS AG Influenza Type B Antigen Screen - Final NEGATIVE INFLUENZA B VIRUS AG Med Orders - Current: Current Medications Albuterol (Proventil Neb Soln) 2.5 mg INH Q4H PRN PRN Reason: Shortness of Breath Last Admin: 03/21/17 21:14 Dose: 2.5 mg Budesonide (Pulmicort) 0.5 mg INH BIDRT GABRIELLA Last Admin: 03/22/17 05:08 Dose: 0.5 mg Piperacillin Sod/Tazobactam (Sod 4.5 gm/ Sodium Chloride) 100 mls @ 100 mls/hr IV Q6H [facility] Last Admin: 03/22/17 05:15 Dose: 100 mls/hr Sodium Chloride (Normal Saline) 1,000 mls @ 10 mls/hr IV ASDIRECTED [facility] Last Admin: 03/21/17 12:43 Dose: 10 mls/hr Vancomycin HCl 1,500 mg/ (Sodium Chloride) 500 mls @ 250 mls/hr IV Q24H [facility] Last Admin: 03/21/17 14:30 Dose: 250 mls/hr Sodium Chloride (Normal Saline) 500 mls @ 500 mls/hr IV .BOLUS [facility] Last Admin: 03/21/17 14:30 Dose: 500 mls/hr Levofloxacin/Dextrose 500 mg/ (Premix) 100 mls @ 66.667 mls/hr IV Q48H [facility] Insulin Aspart (Novolog) 0 unit SUBCUT QIDACANDBED [facility] PRN Reason: Protocol Last Admin: 03/22/17 07:16 Dose: 2 units Insulin Glargine (Lantus Solostar) 30 units SUBCUT BEDTIME [facility] Last Admin: 03/21/17 20:06 Dose: 30 units Methylprednisolone Sodium Succinate (Solu-Medrol) 125 mg IVPUSH Q6H [facility] Warfarin, Pharmacy (To Dose) 0 each .XX DAILY@1400 [facility] Ondansetron HCl (Zofran) 4 mg IVPUSH Q4H PRN PRN Reason: Nausea Last Admin: 03/22/17 00:45 Dose: 4 mg Prednisone (Prednisone) 10 mg PO DAILY [facility] Vancomycin HCl (Pharmacy To Dose - Vancomycin) 1 dose .XX ASDIRECTED [facility] Warfarin Sodium (Coumadin) 2.5 mg PO DAILY@1400 [facility] Discontinued Medications Sodium Chloride (Normal Saline) 1,000 mls @ 250 mls/hr IV STAT ONE Stop: 03/21/17 15:02 Last Admin: 03/21/17 11:31 Dose: 999 mls/hr Levofloxacin/Dextrose 750 mg/ (Premix) 150 mls @ 100 mls/hr IV ONETIME ONE Stop: 03/21/17 13:23 Last Admin: 03/21/17 14:22 Dose: Not Given Dopamine HCl/Dextrose (Dopamine In D5w 400 Mg/250 Ml) 250 mls @ 0 mls/hr IV TITRATE GABRIELLA; 5 MCG/KG/MIN PRN Reason: Protocol Levofloxacin/Dextrose 750 mg/ (Premix) 150 mls @ 100 mls/hr IV Q48H [facility] Last Admin: 03/21/17 17:25 Dose: 100 mls/hr Propofol (Diprivan 100 Ml) Confirm Administered Dose 100 mls @ as directed .ROUTE .STK-MED ONE Stop: 03/22/17 08:22 Insulin Aspart (Novolog) 0 unit SUBCUT TIDAC [facility] PRN Reason: Protocol Last Admin: 03/21/17 17:25 Dose: 2 units Insulin Glargine (Lantus Solostar) 45 units SUBCUT BEDTIME [facility] Warfarin Pharmacy To (Dose) 0 each .XX DAILY GABRIELLA - Exam General: Moderate Distress, Sedated Lungs: Decreased Breath Sounds, Wheezing Cardiovascular: Regular Rate, Regular Rhythm GI/Abdominal Exam: Soft, Non-Tender Skin: Warm, Dry, Intact Neurological: No New Focal Deficit - Problem List Review Problem List Initiated/Reviewed/Updated: Yes - My Orders Last 24 Hours: My Active Orders 03/21/17 12:28 CULTURE SPUTUM + SMEAR [RM] Stat 03/21/17 12:36 Oxygen Therapy [RC] PRN Vital Signs [RC] Q1H Ondansetron [Zofran] 4 mg IVPUSH Q4H PRN 03/21/17 12:39 Antiembolic Devices [RC] PER UNIT ROUTINE Sequential Compression Device [OM.PC] Per Unit Routine 03/21/17 12:49 Accu Check [Blood Glucose Check, Bedside] [RC] TIDAC 03/21/17 13:15 Sodium Chloride 0.9% [Normal Saline] 1,000 ml IV ASDIRECTED 03/21/17 14:15 Sodium Chloride 0.9% [Normal Saline] 500 ml IV .BOLUS 03/21/17 14:30 Vancomycin 1,500 mg Sodium Chloride 0.9% [Normal Saline] 500 ml IV Q24H 03/21/17 17:25 CULTURE URINE [RM] Routine 03/21/17 17:58 Albuterol [Proventil Neb Soln] 2.5 mg INH Q4H PRN 03/21/17 21:00 Budesonide [Pulmicort] 0.5 mg INH BIDRT Insulin Glarg,Human.Rec.Analog [LantUS Solostar] 30 units SUBCUT BEDTIME 03/22/17 08:01 CXR [Chest 1V Frontal] [CR] Routine 03/22/17 08:02 BIPAP Adult [RT BiPAP/CPAP] [RC] ASDIRECTED 03/22/17 08:44 Code Status [Resuscitation Status] Routine 03/22/17 08:45 methylPREDNISolone Sod Succ [Solu-MEDROL] 125 mg IVPUSH Q6H 03/22/17 09:00 predniSONE 10 mg PO DAILY 03/22/17 10:00 LACTIC ACID,WHOLE BLOOD [BG] Q6H 03/22/17 14:00 Warfarin [Coumadin] 2.5 mg PO DAILY@1400 03/23/17 05:11 CBC WITH AUTO DIFF [HEME] AM COMPREHENSIVE METABOLIC PN,CMP [CHEM] AM 03/23/17 16:30 Levofloxacin/Dextrose 5%-Water [Levaquin in D5W 500 MG/100 ML] 500 mg Premix Bag 1 bag IV Q48H 03/24/17 05:11 CBC WITH AUTO DIFF [HEME] AM COMPREHENSIVE METABOLIC PN,CMP [CHEM] AM 03/24/17 14:00 VANCOMYCIN TROUGH [CHEM] Routine 03/25/17 05:11 CBC WITH AUTO DIFF [HEME] AM COMPREHENSIVE METABOLIC PN,CMP [CHEM] AM - Plan Plan:: 56 yo female with acute hypercapnic hypoxic respiratory failure, sepsis and pneumonia. Acute hypercapnic and hypoxic respiratory failure: patient has been placed on bipap. Sepsis: lactic acid has normalized watch for fluid overload due to history of CHF, Pneumonia: on Vancomycin, zosyn, and levaquin. Sputum and blood cultures pending. Suspect COPD exacerbation: will place on solumedrol DM: ssi History of PE: continue coumadin I spoke with Judie Cortez the patient's Niece and they had been talking about hospice and feels patient would not want to be full code but should be DNR/DNI. Will switch to DNR/DNI
[2017-03-22] MEDS: predniSONE 10 MG Tab PO SCH (09:24)
[2017-03-22] MEDS: Piperacillin/Tazobactam 2.25 GM in Sodium Chloride 0.9% 50 ML IV SCH ×3 (12:23→23:19)
[2017-03-22] MEDS: Albuterol/Ipratropium 3.0-0.5 MG/3 ML Neb Soln NEB SCH ×3 (12:48→23:19)
[2017-03-22] MEDS: Warfarin 2.5 MG Tab PO SCH (14:48)
[2017-03-22] MEDS ORDERED: Furosemide 40 MG/4 ML VIAL IVPUSH ONE (17:28)
[2017-03-22] MEDS: Insulin Glargine,Human Rec. Analog 100 Units/ML 3 ML Pen SUBCUT SCH (20:04)
[2017-03-22] MEDS: methylPREDNISolone Sodium Succinate 40 MG/1 ML SDV IV SCH (20:12)
[2017-03-23] MEDS: Budesonide 0.5 MG/2 ML Neb Susp INH SCH ×2 (05:20→20:25)
[2017-03-23] MEDS: Piperacillin/Tazobactam 2.25 GM in Sodium Chloride 0.9% 50 ML IV SCH ×4 (05:20→23:41)
[2017-03-23] MEDS: Albuterol/Ipratropium 3.0-0.5 MG/3 ML Neb Soln NEB SCH ×4 (05:20→23:41)
[2017-03-23] MEDS: Insulin Aspart 100 Units/ML 3 ML Pen SUBCUT SCH ×4 (06:30→20:41)
[2017-03-23] MEDS: methylPREDNISolone Sodium Succinate 40 MG/1 ML SDV IV SCH ×2 (08:54→20:25)
[2017-03-23] MEDS: predniSONE 10 MG Tab PO SCH (08:54)
--- NOTE | 2017-03-23 11:50 | PCM.PN ---
- Review of Systems Systems Review Comment:: patient more awake today, reports that she feels better when sitting up - Patient Data Vitals - Most Recent: Last Vital Signs Temp 36.0 C 03/23/17 08:00 Pulse 107 H 03/23/17 11:00 Resp 21 H 03/23/17 11:00 BP 126/95 H 03/23/17 11:00 Pulse Ox 91 L 03/23/17 11:00 Weight - Most Recent: 100.5 kg I&O - Last 24 Hours: Intake & Output 03/22/17 03/23/17 03/23/17 22:59 06:59 14:59 Intake Total 50 450 Output Total 525 Balance 50 -75 Lab Results Last 24 Hours: Laboratory Results - last 24 hr 03/21/17 03/22/17 03/22/17 Range/Units 12:48 13:53 16:20 WBC (4.0-11.0) K/uL RBC (4.30-5.90) M/uL Hgb (12.0-16.0) g/dL Hct (36.0-46.0) % MCV (80.0-98.0) fL MCH (27.0-32.0) pg MCHC (31.0-37.0) g/dL RDW Std Deviation (28.0-62.0) fl RDW Coeff of Jhon (11.0-15.0) % Plt Count (150-400) K/uL MPV (7.40-12.00) fL Neut % (Auto) (48.0-80.0) % Lymph % (Auto) (16.0-40.0) % [place] % (Auto) (0.0-15.0) % Eos % (Auto) (0.0-7.0) % Baso % (Auto) (0.0-1.5) % Neut # (Auto) (1.4-5.7) K/uL Lymph # (Auto) (0.6-2.4) K/uL [place] # (Auto) (0.0-0.8) K/uL Eos # (Auto) (0.0-0.7) K/uL Baso # (Auto) (0.0-0.1) K/uL Nucleated RBC % /100WBC Nucleated RBCs # K/uL INR (0.86-1.11) ABG pH 7.144 L* (7.35-7.45) ABG pCO2 94 H (35-45) mmHG ABG pO2 79 (75-100) mmHG ABG HCO3 32 H (22-26) mEq/L ABG Total CO2 32.3 ABG Base Excess 2.0 (-2.0-2.0) Sodium (136-146) mmol/L Potassium (3.5-5.1) mmol/L Chloride (98-110) mmol/L Carbon Dioxide (21-31) mmol/L BUN (6.0-23.0) mg/dL Creatinine (0.6-1.5) mg/dL Est Cr Clr Drug Dosing mL/min Estimated GFR (MDRD) ml/min Glucose (60-110) mg/dL POC Glucose (60-110) mg/dL Calcium (8.8-10.8) mg/dL Total Bilirubin (0.1-1.5) mg/dL AST (5-40) IU/L ALT (8-54) IU/L Alkaline Phosphatase (40-150) Total Protein (6.0-8.0) g/dL Albumin (3.5-5.0) g/dL Globulin (2.0-3.5) g/dL Albumin/Globulin Ratio (1.3-2.8) Vancomycin Trough 15.8 H (5-15) ug/mL Blood Type O POSITIVE Crossmatch See Detail 03/22/17 03/22/17 03/23/17 Range/Units 17:47 20:03 06:15 WBC 15.29 H (4.0-11.0) K/uL RBC 2.63 L (4.30-5.90) M/uL Hgb 7.4 L (12.0-16.0) g/dL Hct 24.6 L (36.0-46.0) % MCV 93.5 (80.0-98.0) fL MCH 28.1 (27.0-32.0) pg MCHC 30.1 L (31.0-37.0) g/dL RDW Std Deviation 57.2 (28.0-62.0) fl RDW Coeff of Jhon 17 H (11.0-15.0) % Plt Count 240 (150-400) K/uL MPV 9.20 (7.40-12.00) fL Neut % (Auto) 91.7 H (48.0-80.0) % Lymph % (Auto) 3.5 L (16.0-40.0) % [place] % (Auto) 4.8 (0.0-15.0) % Eos % (Auto) 0.0 (0.0-7.0) % Baso % (Auto) 0.0 (0.0-1.5) % Neut # (Auto) 14.0 H (1.4-5.7) K/uL Lymph # (Auto) 0.5 L (0.6-2.4) K/uL [place] # (Auto) 0.7 (0.0-0.8) K/uL Eos # (Auto) 0.0 (0.0-0.7) K/uL Baso # (Auto) 0.0 (0.0-0.1) K/uL Nucleated RBC % 0.0 /100WBC Nucleated RBCs # 0 K/uL INR (0.86-1.11) ABG pH (7.35-7.45) ABG pCO2 (35-45) mmHG ABG pO2 (75-100) mmHG ABG HCO3 (22-26) mEq/L ABG Total CO2 ABG Base Excess (-2.0-2.0) Sodium (136-146) mmol/L Potassium (3.5-5.1) mmol/L Chloride (98-110) mmol/L Carbon Dioxide (21-31) mmol/L BUN (6.0-23.0) mg/dL Creatinine (0.6-1.5) mg/dL Est Cr Clr Drug Dosing mL/min Estimated GFR (MDRD) ml/min Glucose (60-110) mg/dL POC Glucose 242 H 263 H (60-110) mg/dL Calcium (8.8-10.8) mg/dL Total Bilirubin (0.1-1.5) mg/dL AST (5-40) IU/L ALT (8-54) IU/L Alkaline Phosphatase (40-150) Total Protein (6.0-8.0) g/dL Albumin (3.5-5.0) g/dL Globulin (2.0-3.5) g/dL Albumin/Globulin Ratio (1.3-2.8) Vancomycin Trough (5-15) ug/mL Blood Type Crossmatch 03/23/17 03/23/17 03/23/17 Range/Units 06:15 06:15 06:15 WBC (4.0-11.0) K/uL RBC (4.30-5.90) M/uL Hgb (12.0-16.0) g/dL Hct (36.0-46.0) % MCV (80.0-98.0) fL MCH (27.0-32.0) pg MCHC (31.0-37.0) g/dL RDW Std Deviation (28.0-62.0) fl RDW Coeff of Jhon (11.0-15.0) % Plt Count (150-400) K/uL MPV (7.40-12.00) fL Neut % (Auto) (48.0-80.0) % Lymph % (Auto) (16.0-40.0) % [place] % (Auto) (0.0-15.0) % Eos % (Auto) (0.0-7.0) % Baso % (Auto) (0.0-1.5) % Neut # (Auto) (1.4-5.7) K/uL Lymph # (Auto) (0.6-2.4) K/uL [place] # (Auto) (0.0-0.8) K/uL Eos # (Auto) (0.0-0.7) K/uL Baso # (Auto) (0.0-0.1) K/uL Nucleated RBC % /100WBC Nucleated RBCs # K/uL INR 3.16 H (0.86-1.11) ABG pH (7.35-7.45) ABG pCO2 (35-45) mmHG ABG pO2 (75-100) mmHG ABG HCO3 (22-26) mEq/L ABG Total CO2 ABG Base Excess (-2.0-2.0) Sodium 141 (136-146) mmol/L Potassium 5.2 H (3.5-5.1) mmol/L Chloride 97 L (98-110) mmol/L Carbon Dioxide 29 (21-31) mmol/L BUN 64 H (6.0-23.0) mg/dL Creatinine 3.7 H (0.6-1.5) mg/dL Est Cr Clr Drug Dosing 12.05 mL/min Estimated GFR (MDRD) 12.6 ml/min Glucose 259 H (60-110) mg/dL POC Glucose 236 H (60-110) mg/dL Calcium 8.3 L (8.8-10.8) mg/dL Total Bilirubin 0.4 (0.1-1.5) mg/dL AST 44 H (5-40) IU/L ALT 42 (8-54) IU/L Alkaline Phosphatase 83 (40-150) Total Protein 6.2 (6.0-8.0) g/dL Albumin 3.1 L (3.5-5.0) g/dL Globulin 3.1 (2.0-3.5) g/dL Albumin/Globulin Ratio 1.0 L (1.3-2.8) Vancomycin Trough (5-15) ug/mL Blood Type Crossmatch George Results Last 24 Hours: Microbiology 03/21/17 17:25 Urine Culture - Final Urine, Clean Catch MIXED DANIEL <1000 CFU/ML Med Orders - Current: Current Medications Albuterol (Proventil Neb Soln) 2.5 mg INH Q4H PRN PRN Reason: Shortness of Breath Last Admin: 03/21/17 21:14 Dose: 2.5 mg Albuterol/Ipratropium (Duoneb 3.0-0.5 Mg/3 Ml) 3 ml NEB Q6HRRT [facility] Last Admin: 03/23/17 05:20 Dose: 3 ml Budesonide (Pulmicort) 0.5 mg INH BIDRT [facility] Last Admin: 03/23/17 05:20 Dose: 0.5 mg Sodium Chloride (Normal Saline) 1,000 mls @ 10 mls/hr IV ASDIRECTED [facility] Last Admin: 03/21/17 12:43 Dose: 10 mls/hr Vancomycin HCl 1,500 mg/ (Sodium Chloride) 500 mls @ 250 mls/hr IV Q24H [facility] Last Admin: 03/22/17 15:19 Dose: 250 mls/hr Sodium Chloride (Normal Saline) 500 mls @ 500 mls/hr IV .BOLUS [facility] Last Admin: 03/21/17 14:30 Dose: 500 mls/hr Levofloxacin/Dextrose 500 mg/ (Premix) 100 mls @ 66.667 mls/hr IV Q48H [facility] Piperacillin Sod/Tazobactam (Sod 2.25 gm/ Sodium Chloride) 50 mls @ 100 mls/hr IV Q6H [facility] Last Admin: 03/23/17 05:20 Dose: 100 mls/hr Insulin Aspart (Novolog) 0 unit SUBCUT QIDACANDBED [facility] PRN Reason: Protocol Last Admin: 03/23/17 06:30 Dose: 2 units Insulin Glargine (Lantus Solostar) 30 units SUBCUT BEDTIME [facility] Last Admin: 03/22/17 20:04 Dose: 30 units Methylprednisolone Sodium Succinate (Solu-Medrol) 40 mg IV BID [facility] Last Admin: 03/23/17 08:54 Dose: 40 mg Warfarin, Pharmacy (To Dose) 0 each .XX DAILY@1400 [facility] Last Admin: 03/22/17 14:41 Dose: Not Given Ondansetron HCl (Zofran) 4 mg IVPUSH Q4H PRN PRN Reason: Nausea Last Admin: 03/22/17 00:45 Dose: 4 mg Prednisone (Prednisone) 10 mg PO DAILY [facility] Last Admin: 03/23/17 08:54 Dose: Not Given Vancomycin HCl (Pharmacy To Dose - Vancomycin) 1 dose .XX ASDIRECTED [facility] Warfarin Sodium (Coumadin) 2.5 mg PO DAILY@1400 [facility] Last Admin: 03/22/17 14:48 Dose: Not Given Discontinued Medications Furosemide (Lasix) 40 mg IVPUSH NOW ONE Stop: 03/22/17 17:29 Last Admin: 03/22/17 18:14 Dose: 40 mg Sodium Chloride (Normal Saline) 1,000 mls @ 250 mls/hr IV STAT ONE Stop: 03/21/17 15:02 Last Admin: 03/21/17 11:31 Dose: 999 mls/hr Levofloxacin/Dextrose 750 mg/ (Premix) 150 mls @ 100 mls/hr IV ONETIME ONE Stop: 03/21/17 13:23 Last Admin: 03/21/17 14:22 Dose: Not Given Dopamine HCl/Dextrose (Dopamine In D5w 400 Mg/250 Ml) 250 mls @ 0 mls/hr IV TITRATE GABRIELLA; 5 MCG/KG/MIN PRN Reason: Protocol Piperacillin Sod/Tazobactam (Sod 4.5 gm/ Sodium Chloride) 100 mls @ 100 mls/hr IV Q6H [facility] Last Admin: 03/22/17 05:15 Dose: 100 mls/hr Levofloxacin/Dextrose 750 mg/ (Premix) 150 mls @ 100 mls/hr IV Q48H [facility] Last Admin: 03/21/17 17:25 Dose: 100 mls/hr Propofol (Diprivan 100 Ml) Confirm Administered Dose 100 mls @ as directed .ROUTE .STK-MED ONE Stop: 03/22/17 08:22 Last Admin: 03/22/17 09:24 Dose: Not Given Insulin Aspart (Novolog) 0 unit SUBCUT TIDAC [facility] PRN Reason: Protocol Last Admin: 03/21/17 17:25 Dose: 2 units Insulin Glargine (Lantus Solostar) 45 units SUBCUT BEDTIME GABRIELLA Methylprednisolone Sodium Succinate (Solu-Medrol) 125 mg IVPUSH Q6H [facility] Last Admin: 03/22/17 09:24 Dose: 125 mg Warfarin Pharmacy To (Dose) 0 each .XX DAILY GABRIELLA - Exam General: Cooperative, Mild Distress (respiratory when taking off bipap for short period of time), Lethargic Cardiovascular: Regular Rate, Regular Rhythm. No: Murmurs GI/Abdominal Exam: Soft, Non-Tender Extremities: Pedal Edema (+2) Skin: Warm, Dry, Intact - Problem List Review Problem List Initiated/Reviewed/Updated: Yes - My Orders Last 24 Hours: My Active Orders 03/22/17 12:00 Albuterol/Ipratropium [DuoNeb 3.0-0.5 MG/3 ML] 3 ml NEB Q6HRRT 03/22/17 12:15 Piperacillin/Tazobactam [Zosyn] 2.25 gm Sodium Chloride 0.9% [Normal Saline] 50 ml IV Q6H 03/22/17 14:00 Warfarin [Coumadin] 2.5 mg PO DAILY@1400 03/23/17 11:41 RED BLOOD CELLS LP [BBK] Routine Transfuse Red Blood Cells [COMM] Routine 03/23/17 16:30 Levofloxacin/Dextrose 5%-Water [Levaquin in D5W 500 MG/100 ML] 500 mg Premix Bag 1 bag IV Q48H 03/24/17 05:11 CBC WITH AUTO DIFF [HEME] AM COMPREHENSIVE METABOLIC PN,CMP [CHEM] AM 03/25/17 05:11 CBC WITH AUTO DIFF [HEME] AM COMPREHENSIVE METABOLIC PN,CMP [CHEM] AM - Plan Plan:: 56 yo female with acute hypercapnic hypoxic respiratory failure, sepsis and pneumonia. Acute hypercapnic and hypoxic respiratory failure: patient is on bipap, she desats quickly without it and asks for mask to placed back Pneumonia: on Vancomycin, zosyn, and levaquin. Sputum and blood cultures pending. Suspected COPD exacerbation:on solumedrol Acute kidney injury: creatinine increased to 3.7 today, patient received lasix yesterday with output of 800ml Symptomatic anemia; Hgb 7.4, will transfuse two units of pRBC DM: ssi History of PE: INR of 3.16 today on coumadin Code status DNR/DNI
[2017-03-23] MEDS: Warfarin 2.5 MG Tab PO SCH (15:16)
[2017-03-23] MEDS ORDERED: Levofloxacin/Dextrose 5%-Water 500 MG in Premix Bag 1 BAG IV SCH (16:30)
[2017-03-23] MEDS: Insulin Glargine,Human Rec. Analog 100 Units/ML 3 ML Pen SUBCUT SCH (20:41)
[2017-03-24] MEDS: Albuterol/Ipratropium 3.0-0.5 MG/3 ML Neb Soln NEB SCH ×3 (05:11→18:00)
[2017-03-24] MEDS: Budesonide 0.5 MG/2 ML Neb Susp INH SCH ×2 (05:11→21:30)
[2017-03-24] MEDS: Piperacillin/Tazobactam 2.25 GM in Sodium Chloride 0.9% 50 ML IV SCH (05:15)
[2017-03-24] MEDS: Insulin Aspart 100 Units/ML 3 ML Pen SUBCUT SCH ×4 (06:32→21:25)
[2017-03-24] MEDS: predniSONE 10 MG Tab PO SCH (09:13)
--- NOTE | 2017-03-24 09:52 | PCM.PN ---
- Review of Systems Systems Review Comment:: sitting at edge of bed, complains of pain on bottom, desats quickly without bipap - Patient Data Vitals - Most Recent: Last Vital Signs Temp 36 C 03/24/17 08:00 Pulse 114 H 03/24/17 09:00 Resp 18 03/24/17 09:00 BP 114/95 H 03/24/17 09:00 Pulse Ox 98 03/24/17 09:00 Weight - Most Recent: 98.5 kg I&O - Last 24 Hours: Intake & Output 03/23/17 03/24/17 03/24/17 22:59 06:59 14:59 Intake Total 1800 350 Output Total 450 500 Balance 1350 -150 Lab Results Last 24 Hours: Laboratory Results - last 24 hr 03/21/17 03/23/17 03/23/17 Range/Units 12:48 12:16 17:37 WBC (4.0-11.0) K/uL RBC (4.30-5.90) M/uL Hgb (12.0-16.0) g/dL Hct (36.0-46.0) % MCV (80.0-98.0) fL MCH (27.0-32.0) pg MCHC (31.0-37.0) g/dL RDW Std Deviation (28.0-62.0) fl RDW Coeff of Jhon (11.0-15.0) % Plt Count (150-400) K/uL MPV (7.40-12.00) fL Add Manual Diff Neutrophils % (Manual) (48.0-80.0) % Band Neutrophils % % Lymphocytes % (Manual) (16.0-40.0) % Monocytes % (Manual) (0.0-15.0) % Nucleated RBC % /100WBC Absolute Seg Neuts (1.4-5.7) Band Neutrophils # Lymphocytes # (Manual) (0.6-2.4) Monocytes # (Manual) (0.0-0.8) Nucleated RBCs # K/uL Sodium (136-146) mmol/L Potassium (3.5-5.1) mmol/L Chloride (98-110) mmol/L Carbon Dioxide (21-31) mmol/L BUN (6.0-23.0) mg/dL Creatinine (0.6-1.5) mg/dL Est Cr Clr Drug Dosing mL/min Estimated GFR (MDRD) ml/min Glucose (60-110) mg/dL POC Glucose 226 H 196 H (60-110) mg/dL Calcium (8.8-10.8) mg/dL Total Bilirubin (0.1-1.5) mg/dL AST (5-40) IU/L ALT (8-54) IU/L Alkaline Phosphatase (40-150) Total Protein (6.0-8.0) g/dL Albumin (3.5-5.0) g/dL Globulin (2.0-3.5) g/dL Albumin/Globulin Ratio (1.3-2.8) Blood Type O POSITIVE Antibody Screen NEGATIVE Crossmatch See Detail 03/23/17 03/23/17 03/24/17 Range/Units 19:03 20:36 05:23 WBC 24.74 H (4.0-11.0) K/uL RBC 3.89 L (4.30-5.90) M/uL Hgb 10.7 L 11.1 L (12.0-16.0) g/dL Hct 34.1 L 35.1 L (36.0-46.0) % MCV 90.2 (80.0-98.0) fL MCH 28.5 (27.0-32.0) pg MCHC 31.6 (31.0-37.0) g/dL RDW Std Deviation 55.8 (28.0-62.0) fl RDW Coeff of Jhon 17 H (11.0-15.0) % Plt Count 255 (150-400) K/uL MPV 10.00 (7.40-12.00) fL Add Manual Diff YES Neutrophils % (Manual) 86 H (48.0-80.0) % Band Neutrophils % 5 % Lymphocytes % (Manual) 7 L (16.0-40.0) % Monocytes % (Manual) 2 (0.0-15.0) % Nucleated RBC % 0.0 /100WBC Absolute Seg Neuts 21.3 H (1.4-5.7) Band Neutrophils # 1.2 Lymphocytes # (Manual) 1.7 (0.6-2.4) Monocytes # (Manual) 0.5 (0.0-0.8) Nucleated RBCs # 0 K/uL Sodium (136-146) mmol/L Potassium (3.5-5.1) mmol/L Chloride (98-110) mmol/L Carbon Dioxide (21-31) mmol/L BUN (6.0-23.0) mg/dL Creatinine (0.6-1.5) mg/dL Est Cr Clr Drug Dosing mL/min Estimated GFR (MDRD) ml/min Glucose (60-110) mg/dL POC Glucose 247 H (60-110) mg/dL Calcium (8.8-10.8) mg/dL Total Bilirubin (0.1-1.5) mg/dL AST (5-40) IU/L ALT (8-54) IU/L Alkaline Phosphatase (40-150) Total Protein (6.0-8.0) g/dL Albumin (3.5-5.0) g/dL Globulin (2.0-3.5) g/dL Albumin/Globulin Ratio (1.3-2.8) Blood Type Antibody Screen Crossmatch 03/24/17 03/24/17 Range/Units 05:23 05:36 WBC (4.0-11.0) K/uL RBC (4.30-5.90) M/uL Hgb (12.0-16.0) g/dL Hct (36.0-46.0) % MCV (80.0-98.0) fL MCH (27.0-32.0) pg MCHC (31.0-37.0) g/dL RDW Std Deviation (28.0-62.0) fl RDW Coeff of Jhon (11.0-15.0) % Plt Count (150-400) K/uL MPV (7.40-12.00) fL Add Manual Diff Neutrophils % (Manual) (48.0-80.0) % Band Neutrophils % % Lymphocytes % (Manual) (16.0-40.0) % Monocytes % (Manual) (0.0-15.0) % Nucleated RBC % /100WBC Absolute Seg Neuts (1.4-5.7) Band Neutrophils # Lymphocytes # (Manual) (0.6-2.4) Monocytes # (Manual) (0.0-0.8) Nucleated RBCs # K/uL Sodium 145 (136-146) mmol/L Potassium 5.5 H (3.5-5.1) mmol/L Chloride 100 (98-110) mmol/L Carbon Dioxide 28 (21-31) mmol/L BUN 75 H (6.0-23.0) mg/dL Creatinine 3.9 H (0.6-1.5) mg/dL Est Cr Clr Drug Dosing 11.43 mL/min Estimated GFR (MDRD) 11.9 ml/min Glucose 221 H (60-110) mg/dL POC Glucose 200 H (60-110) mg/dL Calcium 8.4 L (8.8-10.8) mg/dL Total Bilirubin 0.5 (0.1-1.5) mg/dL AST 75 H (5-40) IU/L ALT 73 H (8-54) IU/L Alkaline Phosphatase 113 (40-150) Total Protein 6.3 (6.0-8.0) g/dL Albumin 3.6 (3.5-5.0) g/dL Globulin 2.7 (2.0-3.5) g/dL Albumin/Globulin Ratio 1.3 (1.3-2.8) Blood Type Antibody Screen Crossmatch George Results Last 24 Hours: Microbiology 03/21/17 17:25 Urine Culture - Final Urine, Clean Catch MIXED DANIEL <1000 CFU/ML Med Orders - Current: Current Medications Albuterol (Proventil Neb Soln) 2.5 mg INH Q4H PRN PRN Reason: Shortness of Breath Last Admin: 03/21/17 21:14 Dose: 2.5 mg Albuterol/Ipratropium (Duoneb 3.0-0.5 Mg/3 Ml) 3 ml NEB Q6HRRT [facility] Last Admin: 03/24/17 05:11 Dose: 3 ml Budesonide (Pulmicort) 0.5 mg INH BIDRT [facility] Last Admin: 03/24/17 05:11 Dose: 0.5 mg Sodium Chloride (Normal Saline) 1,000 mls @ 10 mls/hr IV ASDIRECTED [facility] Last Admin: 03/21/17 12:43 Dose: 10 mls/hr Vancomycin HCl 1,500 mg/ (Sodium Chloride) 500 mls @ 250 mls/hr IV Q24H [facility] Last Admin: 03/23/17 15:16 Dose: 250 mls/hr Sodium Chloride (Normal Saline) 500 mls @ 500 mls/hr IV .BOLUS [facility] Last Admin: 03/21/17 14:30 Dose: 500 mls/hr Levofloxacin/Dextrose 500 mg/ (Premix) 100 mls @ 66.667 mls/hr IV Q48H [facility] Last Admin: 03/23/17 18:49 Dose: 66.667 mls/hr Insulin Aspart (Novolog) 0 unit SUBCUT QIDACANDBED [facility] PRN Reason: Protocol Last Admin: 03/24/17 06:32 Dose: 2 units Insulin Glargine (Lantus Solostar) 30 units SUBCUT BEDTIME [facility] Last Admin: 03/23/17 20:41 Dose: 30 units Methylprednisolone Sodium Succinate (Solu-Medrol) 40 mg IV BID [facility] Last Admin: 03/23/17 20:25 Dose: 40 mg Warfarin, Pharmacy (To Dose) 0 each .XX DAILY@1400 [facility] Last Admin: 03/23/17 15:07 Dose: Not Given Ondansetron HCl (Zofran) 4 mg IVPUSH Q4H PRN PRN Reason: Nausea Last Admin: 03/22/17 00:45 Dose: 4 mg Vancomycin HCl (Pharmacy To Dose - Vancomycin) 1 dose .XX ASDIRECTED [facility] Warfarin Sodium (Coumadin) 2.5 mg PO DAILY@1400 [facility] Last Admin: 03/23/17 15:16 Dose: 2.5 mg Discontinued Medications Furosemide (Lasix) 40 mg IVPUSH NOW ONE Stop: 03/22/17 17:29 Last Admin: 03/22/17 18:14 Dose: 40 mg Sodium Chloride (Normal Saline) 1,000 mls @ 250 mls/hr IV STAT ONE Stop: 03/21/17 15:02 Last Admin: 03/21/17 11:31 Dose: 999 mls/hr Levofloxacin/Dextrose 750 mg/ (Premix) 150 mls @ 100 mls/hr IV ONETIME ONE Stop: 03/21/17 13:23 Last Admin: 03/21/17 14:22 Dose: Not Given Dopamine HCl/Dextrose (Dopamine In D5w 400 Mg/250 Ml) 250 mls @ 0 mls/hr IV TITRATE GABRIELLA; 5 MCG/KG/MIN PRN Reason: Protocol Piperacillin Sod/Tazobactam (Sod 4.5 gm/ Sodium Chloride) 100 mls @ 100 mls/hr IV Q6H [facility] Last Admin: 03/22/17 05:15 Dose: 100 mls/hr Levofloxacin/Dextrose 750 mg/ (Premix) 150 mls @ 100 mls/hr IV Q48H [facility] Last Admin: 03/21/17 17:25 Dose: 100 mls/hr Propofol (Diprivan 100 Ml) Confirm Administered Dose 100 mls @ as directed .ROUTE .STK-MED ONE Stop: 03/22/17 08:22 Last Admin: 03/22/17 09:24 Dose: Not Given Piperacillin Sod/Tazobactam (Sod 2.25 gm/ Sodium Chloride) 50 mls @ 100 mls/hr IV Q6H [facility] Last Admin: 03/24/17 05:15 Dose: 100 mls/hr Insulin Aspart (Novolog) 0 unit SUBCUT TIDAC [facility] PRN Reason: Protocol Last Admin: 03/21/17 17:25 Dose: 2 units Insulin Glargine (Lantus Solostar) 45 units SUBCUT BEDTIME [facility] Methylprednisolone Sodium Succinate (Solu-Medrol) 125 mg IVPUSH Q6H [facility] Last Admin: 03/22/17 09:24 Dose: 125 mg Warfarin Pharmacy To (Dose) 0 each .XX DAILY [facility] Prednisone (Prednisone) 10 mg PO DAILY [facility] Last Admin: 03/24/17 09:13 Dose: Not Given - Exam General: Mild Distress Lungs: Decreased Breath Sounds, Wheezing Cardiovascular: Regular Rhythm, Tachycardia GI/Abdominal Exam: Soft, Non-Tender Extremities: Pedal Edema (+2 edema) Skin: Warm, Dry, Intact - Problem List Review Problem List Initiated/Reviewed/Updated: Yes - My Orders Last 24 Hours: My Active Orders 03/23/17 11:41 Transfuse Red Blood Cells [COMM] Routine 03/23/17 16:30 Levofloxacin/Dextrose 5%-Water [Levaquin in D5W 500 MG/100 ML] 500 mg Premix Bag 1 bag IV Q48H 03/24/17 14:00 VANCOMYCIN TROUGH [CHEM] Routine 03/25/17 05:11 CBC WITH AUTO DIFF [HEME] AM COMPREHENSIVE METABOLIC PN,CMP [CHEM] AM - Plan Plan:: 56 yo female with acute hypercapnic hypoxic respiratory failure, sepsis and pneumonia. Acute hypercapnic and hypoxic respiratory failure: patient is on bipap, she desats quickly without it and asks for mask to placed back Pneumonia: on Vancomycin and levaquin. d/c zosyn Suspected COPD exacerbation: on solumedrol Acute kidney injury: creatinine increased to 3.9 today, possible due to sepsis and several days of borderline low blood pressure, will d/c possible nephrotoxic medications Symptomatic anemia; Hgb 11.1, 3/p two units of pRBC transfusion DM: ssi History of PE: on coumadin Code status DNR/DNI I spoke with patient and family regarding hospice. Patient does not respond well when asked questions regarding goals of care. According to family there is history of cognitive decline which in part lead to intermediate placement. FAmily is wanting to speak with hospice so consult was placed.
[2017-03-24] MEDS: methylPREDNISolone Sodium Succinate 40 MG/1 ML SDV IV SCH ×2 (10:12→21:19)
[2017-03-24] MEDS: Warfarin 2.5 MG Tab PO SCH (14:41)
--- NOTE | 2017-03-24 15:39 | US ---
EXAMINATION: Right upper quadrant ultrasound HISTORY: Elevated LFTs COMPARISON: None TECHNIQUE: Grayscale, color Doppler, and spectral Doppler imaging obtained. FINDINGS: Pancreas not well characterized. The liver appears normal contour and echotexture without a focal hepatic mass. Gallbladder wall thickness is mildly prominent at 4 mm. No shadowing stones. Tra ce pericholecystic fluid is likely. Sonographic Tong sign is reported positive. Right kidney measur es 9.3 cm [id number] without evidence of hydronephrosis. Common bile duct not well characterized. IMPRESSION: 1. Gallbladder wall thickening with positive sonographic Tong sign. Correlate clinically for acute cholecystitis.
--- NOTE | 2017-03-24 15:52 | CR ---
EXAM DATE: 03/21/17 PATIENT'S AGE: 56 Patient: ORI GUNDERSON Facility: [place], [place] Site . Site : 1960 Study: XRay Chest [id number] 8:43:14 AM Ordering Physician: Kary Parks Final Report: Hypoxia Technique : Single-view chest x-ray Comparison: Chest x-ray 03/21/2017. Findings : Low lung volumes. Mild cardiomegaly. Mild pulmonary edema without change. Possible basilar effusions. IMPRESSION: Mild pulmonary edema, stable. Possible small effusions. Dictated by Aletha Ames MD @ Mar 22 2017 9:14AM (Electronic Signature) Report Signed by Proxy. [facility] HOSPITALChristopher
[2017-03-24] MEDS: metroNIDAZOLE/Normal Saline 500 MG in Premix Bag 1 BAG IV SCH (17:45)
[2017-03-24] MEDS: Insulin Glargine,Human Rec. Analog 100 Units/ML 3 ML Pen SUBCUT SCH (21:21)
[2017-03-25] MEDS: Albuterol/Ipratropium 3.0-0.5 MG/3 ML Neb Soln NEB SCH ×4 (00:04→17:41)
[2017-03-25] MEDS: metroNIDAZOLE/Normal Saline 500 MG in Premix Bag 1 BAG IV SCH ×3 (00:29→16:58)
[2017-03-25] MEDS: Budesonide 0.5 MG/2 ML Neb Susp INH SCH ×2 (06:34→21:02)
[2017-03-25] MEDS: Insulin Aspart 100 Units/ML 3 ML Pen SUBCUT SCH ×4 (07:15→21:05)
[2017-03-25] MEDS: Pantoprazole 40 MG Vial IVPUSH SCH (08:48)
[2017-03-25] MEDS ORDERED: Lidocaine 2% 5 ML SDV ONE (08:53)
[2017-03-25] MEDS: methylPREDNISolone Sodium Succinate 40 MG/1 ML SDV IV SCH ×2 (09:45→21:03)
--- NOTE | 2017-03-25 14:45 | PCM.PN ---
- General Info Date of Service: 03/25/17 Admission Dx/Problem (Free Text): Patient continues to be on BiPAP without success of weaning down. Central line was initially planned to be placed for IV access given difficulty of access, however after discussing the patient's case with family, hospice has been consult and Central line was thus not placed. Patient denies any new symptoms or complaints such as chest pain, fever, nausea or vomiting. - Review of Systems General: Reports: Other (Review of systems negative except for history of present illness) - Patient Data Vitals - Most Recent: Last Vital Signs Temp 36.4 C 03/25/17 13:00 Pulse 108 H 03/25/17 07:00 Resp 18 03/25/17 13:00 BP 142/76 H 03/25/17 13:00 Pulse Ox 100 03/25/17 13:00 Weight - Most Recent: 96 kg I&O - Last 24 Hours: Intake & Output 03/24/17 03/25/17 03/25/17 22:59 06:59 14:59 Intake Total 470 100 100 Output Total 575 1075 Balance -105 -975 100 Lab Results Last 24 Hours: Laboratory Results - last 24 hr 03/24/17 03/24/17 03/24/17 Range/Units 14:28 17:44 21:10 WBC (4.0-11.0) K/uL RBC (4.30-5.90) M/uL Hgb (12.0-16.0) g/dL Hct (36.0-46.0) % MCV (80.0-98.0) fL MCH (27.0-32.0) pg MCHC (31.0-37.0) g/dL RDW Std Deviation (28.0-62.0) fl RDW Coeff of Jhon (11.0-15.0) % Plt Count (150-400) K/uL MPV (7.40-12.00) fL Neut % (Auto) (48.0-80.0) % Lymph % (Auto) (16.0-40.0) % [place] % (Auto) (0.0-15.0) % Eos % (Auto) (0.0-7.0) % Baso % (Auto) (0.0-1.5) % Neut # (Auto) (1.4-5.7) K/uL Lymph # (Auto) (0.6-2.4) K/uL [place] # (Auto) (0.0-0.8) K/uL Eos # (Auto) (0.0-0.7) K/uL Baso # (Auto) (0.0-0.1) K/uL Nucleated RBC % /100WBC Nucleated RBCs # K/uL INR (0.86-1.11) Sodium 144 (136-146) mmol/L Potassium 4.9 (3.5-5.1) mmol/L Chloride 101 (98-110) mmol/L Carbon Dioxide 28 (21-31) mmol/L BUN 77 H (6.0-23.0) mg/dL Creatinine 3.6 H (0.6-1.5) mg/dL Est Cr Clr Drug Dosing 12.38 mL/min Estimated GFR (MDRD) 13.0 ml/min Glucose 184 H (60-110) mg/dL POC Glucose 170 H 175 H (60-110) mg/dL Calcium 8.3 L (8.8-10.8) mg/dL Total Bilirubin (0.1-1.5) mg/dL AST (5-40) IU/L ALT (8-54) IU/L Alkaline Phosphatase (40-150) Total Protein (6.0-8.0) g/dL Albumin (3.5-5.0) g/dL Globulin (2.0-3.5) g/dL Albumin/Globulin Ratio (1.3-2.8) Vancomycin Trough 31.5 H (5-15) ug/mL 03/25/17 03/25/17 03/25/17 Range/Units 07:02 07:24 07:24 WBC 15.87 H (4.0-11.0) K/uL RBC 3.59 L (4.30-5.90) M/uL Hgb 10.2 L (12.0-16.0) g/dL Hct 32.7 L (36.0-46.0) % MCV 91.1 (80.0-98.0) fL MCH 28.4 (27.0-32.0) pg MCHC 31.2 (31.0-37.0) g/dL RDW Std Deviation 55.7 (28.0-62.0) fl RDW Coeff of Jhon 17 H (11.0-15.0) % Plt Count 273 (150-400) K/uL MPV 9.50 (7.40-12.00) fL Neut % (Auto) 85.7 H (48.0-80.0) % Lymph % (Auto) 6.6 L (16.0-40.0) % [place] % (Auto) 7.6 (0.0-15.0) % Eos % (Auto) 0.0 (0.0-7.0) % Baso % (Auto) 0.1 (0.0-1.5) % Neut # (Auto) 13.6 H (1.4-5.7) K/uL Lymph # (Auto) 1.0 (0.6-2.4) K/uL [place] # (Auto) 1.2 H (0.0-0.8) K/uL Eos # (Auto) 0.0 (0.0-0.7) K/uL Baso # (Auto) 0.0 (0.0-0.1) K/uL Nucleated RBC % 0.2 /100WBC Nucleated RBCs # 0 K/uL INR (0.86-1.11) Sodium 144 (136-146) mmol/L Potassium 4.9 (3.5-5.1) mmol/L Chloride 101 (98-110) mmol/L Carbon Dioxide 29 (21-31) mmol/L BUN 76 H (6.0-23.0) mg/dL Creatinine 3.1 H (0.6-1.5) mg/dL Est Cr Clr Drug Dosing 14.38 mL/min Estimated GFR (MDRD) 15.5 ml/min Glucose 196 H (60-110) mg/dL POC Glucose 143 H (60-110) mg/dL Calcium 9.4 (8.8-10.8) mg/dL Total Bilirubin 0.4 (0.1-1.5) mg/dL AST 46 H (5-40) IU/L ALT 62 H (8-54) IU/L Alkaline Phosphatase 89 (40-150) Total Protein 6.7 (6.0-8.0) g/dL Albumin 3.5 (3.5-5.0) g/dL Globulin 3.2 (2.0-3.5) g/dL Albumin/Globulin Ratio 1.1 L (1.3-2.8) Vancomycin Trough (5-15) ug/mL 03/25/17 03/25/17 Range/Units 07:24 11:33 WBC (4.0-11.0) K/uL RBC (4.30-5.90) M/uL Hgb (12.0-16.0) g/dL Hct (36.0-46.0) % MCV (80.0-98.0) fL MCH (27.0-32.0) pg MCHC (31.0-37.0) g/dL RDW Std Deviation (28.0-62.0) fl RDW Coeff of Jhon (11.0-15.0) % Plt Count (150-400) K/uL MPV (7.40-12.00) fL Neut % (Auto) (48.0-80.0) % Lymph % (Auto) (16.0-40.0) % [place] % (Auto) (0.0-15.0) % Eos % (Auto) (0.0-7.0) % Baso % (Auto) (0.0-1.5) % Neut # (Auto) (1.4-5.7) K/uL Lymph # (Auto) (0.6-2.4) K/uL [place] # (Auto) (0.0-0.8) K/uL Eos # (Auto) (0.0-0.7) K/uL Baso # (Auto) (0.0-0.1) K/uL Nucleated RBC % /100WBC Nucleated RBCs # K/uL INR 2.85 H (0.86-1.11) Sodium (136-146) mmol/L Potassium (3.5-5.1) mmol/L Chloride (98-110) mmol/L Carbon Dioxide (21-31) mmol/L BUN (6.0-23.0) mg/dL Creatinine (0.6-1.5) mg/dL Est Cr Clr Drug Dosing mL/min Estimated GFR (MDRD) ml/min Glucose (60-110) mg/dL POC Glucose 163 H (60-110) mg/dL Calcium (8.8-10.8) mg/dL Total Bilirubin (0.1-1.5) mg/dL AST (5-40) IU/L ALT (8-54) IU/L Alkaline Phosphatase (40-150) Total Protein (6.0-8.0) g/dL Albumin (3.5-5.0) g/dL Globulin (2.0-3.5) g/dL Albumin/Globulin Ratio (1.3-2.8) Vancomycin Trough (5-15) ug/mL Med Orders - Current: Current Medications Albuterol (Proventil Neb Soln) 2.5 mg INH Q4H PRN PRN Reason: Shortness of Breath Last Admin: 03/21/17 21:14 Dose: 2.5 mg Albuterol/Ipratropium (Duoneb 3.0-0.5 Mg/3 Ml) 3 ml NEB Q6HRRT [facility] Last Admin: 03/25/17 12:41 Dose: 3 ml Budesonide (Pulmicort) 0.5 mg INH BIDRT [facility] Last Admin: 03/25/17 06:34 Dose: 0.5 mg Sodium Chloride (Normal Saline) 1,000 mls @ 10 mls/hr IV ASDIRECTED [facility] Last Admin: 03/21/17 12:43 Dose: 10 mls/hr Sodium Chloride (Normal Saline) 500 mls @ 500 mls/hr IV .BOLUS [facility] Last Admin: 03/21/17 14:30 Dose: 500 mls/hr Levofloxacin/Dextrose 500 mg/ (Premix) 100 mls @ 66.667 mls/hr IV Q48H [facility] Last Admin: 03/23/17 18:49 Dose: 66.667 mls/hr Metronidazole 500 mg/ Premix 100 mls @ 100 mls/hr IV Q8H [facility] Last Admin: 03/25/17 09:47 Dose: 100 mls/hr Vancomycin HCl 1,500 mg/ (Sodium Chloride) 500 mls @ 250 mls/hr IV Q36H [facility] Insulin Aspart (Novolog) 0 unit SUBCUT QIDACANDBED [facility] PRN Reason: Protocol Last Admin: 03/25/17 12:27 Dose: 1 units Insulin Glargine (Lantus Solostar) 30 units SUBCUT BEDTIME [facility] Last Admin: 03/24/17 21:21 Dose: 30 units Methylprednisolone Sodium Succinate (Solu-Medrol) 40 mg IV BID [facility] Last Admin: 03/25/17 09:45 Dose: 40 mg Warfarin, Pharmacy (To Dose) 0 each .XX DAILY@1400 [facility] Last Admin: 03/24/17 14:43 Dose: Not Given Ondansetron HCl (Zofran) 4 mg IVPUSH Q4H PRN PRN Reason: Nausea Last Admin: 03/22/17 00:45 Dose: 4 mg Pantoprazole Sodium (Protonix Iv) 40 mg IVPUSH Q24H [facility] Last Admin: 03/25/17 08:48 Dose: 40 mg Vancomycin HCl (Pharmacy To Dose - Vancomycin) 1 dose .XX ASDIRECTED [facility] Warfarin Sodium (Coumadin) 2.5 mg PO DAILY@1400 [facility] Last Admin: 03/24/17 14:41 Dose: 2.5 mg Discontinued Medications Furosemide (Lasix) 40 mg IVPUSH NOW ONE Stop: 03/22/17 17:29 Last Admin: 03/22/17 18:14 Dose: 40 mg Sodium Chloride (Normal Saline) 1,000 mls @ 250 mls/hr IV STAT ONE Stop: 03/21/17 15:02 Last Admin: 03/21/17 11:31 Dose: 999 mls/hr Levofloxacin/Dextrose 750 mg/ (Premix) 150 mls @ 100 mls/hr IV ONETIME ONE Stop: 03/21/17 13:23 Last Admin: 03/21/17 14:22 Dose: Not Given Dopamine HCl/Dextrose (Dopamine In D5w 400 Mg/250 Ml) 250 mls @ 0 mls/hr IV TITRATE GABRIELLA; 5 MCG/KG/MIN PRN Reason: Protocol Piperacillin Sod/Tazobactam (Sod 4.5 gm/ Sodium Chloride) 100 mls @ 100 mls/hr IV Q6H [facility] Last Admin: 03/22/17 05:15 Dose: 100 mls/hr Vancomycin HCl 1,500 mg/ (Sodium Chloride) 500 mls @ 250 mls/hr IV Q24H [facility] Last Admin: 03/24/17 20:21 Dose: Not Given Levofloxacin/Dextrose 750 mg/ (Premix) 150 mls @ 100 mls/hr IV Q48H [facility] Last Admin: 03/21/17 17:25 Dose: 100 mls/hr Propofol (Diprivan 100 Ml) Confirm Administered Dose 100 mls @ as directed .ROUTE .STK-MED ONE Stop: 03/22/17 08:22 Last Admin: 03/22/17 09:24 Dose: Not Given Piperacillin Sod/Tazobactam (Sod 2.25 gm/ Sodium Chloride) 50 mls @ 100 mls/hr IV Q6H [facility] Last Admin: 03/24/17 05:15 Dose: 100 mls/hr Insulin Aspart (Novolog) 0 unit SUBCUT TIDAC [facility] PRN Reason: Protocol Last Admin: 03/21/17 17:25 Dose: 2 units Insulin Glargine (Lantus Solostar) 45 units SUBCUT BEDTIME [facility] Lidocaine (Xylocaine-Mpf 2%) Confirm Administered Dose 5 ml .ROUTE .STK-MED ONE Stop: 03/25/17 08:54 Last Admin: 03/25/17 09:55 Dose: Not Given Methylprednisolone Sodium Succinate (Solu-Medrol) 125 mg IVPUSH Q6H [facility] Last Admin: 03/22/17 09:24 Dose: 125 mg Warfarin Pharmacy To (Dose) 0 each .XX DAILY [facility] Prednisone (Prednisone) 10 mg PO DAILY [facility] Last Admin: 03/24/17 09:13 Dose: Not Given - Exam Quality Assessment: Supplemental Oxygen General: Alert, Oriented HEENT: Pupils Equal, Mucous Membr. Moist/[place] Neck: Supple Lungs: Decreased Breath Sounds Cardiovascular: Regular Rate, Regular Rhythm GI/Abdominal Exam: Normal Bowel Sounds, Soft Skin: Warm, Dry Psy/Mental Status: Alert, Normal Affect, Normal Mood - Problem List Review Problem List Initiated/Reviewed/Updated: Yes - My Orders Last 24 Hours: My Active Orders 03/24/17 16:30 metroNIDAZOLE/Normal Saline [Flagyl 500 MG in NS 100 ML] 500 mg Premix Bag 1 bag IV Q8H 03/25/17 07:30 Pantoprazole [ProTONIX IV] 40 mg IVPUSH Q24H 03/26/17 05:11 INR,PT,PROTHROMBIN TIME [COAG] DAILY - Plan Plan:: Assessment: #1. Acute hypoxic respiratory failure secondary to pneumonia, COPD exacerbation #2. Pneumonia #3. Acute kidney injury that is improving #4. Diabetes mellitus #5. Symptomatic anemia that has improved Plan: #1. Continue current regimen #2. Pantoprazole for GI prophylaxis given the Solu-Medrol that she's on #3. Repeat chest x-ray
[2017-03-25] MEDS: Warfarin 2.5 MG Tab PO SCH (14:46)
--- NOTE | 2017-03-25 16:51 | CR ---
EXAM DATE: 03/21/17 PATIENT'S AGE: 56 Patient: ORI GUNDERSON Facility: [place], [place] Site . Site : 1960 Study: XRay Chest [id number]/16/2018 8:34:06 AM Ordering Physician: Kary Parks Final Report: Indication: Hypoxia Technique: Chest 1 view Comparison: March 22, 2017 Findings/Impression: Cardiovascular and mediastinum: Stable mild cardiomegaly. Lungs and pleural space: Stable mild pulmonary edema. Possible pleural effusions. No pneumothorax. No change from the prior exam. Bones and soft tissues: No acute findings. Dictated by Kahlil Pierson MD @ 03/25/2017 8:40:08 AM Dictated by: Kahlil Pierson MD @ 03/25/2017 08:40:13 (Electronic Signature) Report Signed by Proxy. [facility]ITALChristopher
[2017-03-25] MEDS ORDERED: Levofloxacin/Dextrose 5%-Water 500 MG in Premix Bag 1 BAG IV SCH (18:00)
[2017-03-25] MEDS: Insulin Glargine,Human Rec. Analog 100 Units/ML 3 ML Pen SUBCUT SCH (21:05)
[2017-03-25] MEDS ORDERED: LORazepam 2 MG/ML MDV IVPUSH PRN (22:58)
[2017-03-25] MEDS ORDERED: Morphine 10 MG/ML Syringe IV PRN (22:59)
[2017-03-26] MEDS: metroNIDAZOLE/Normal Saline 500 MG in Premix Bag 1 BAG IV SCH (00:12)
[2017-03-26] MEDS: Albuterol/Ipratropium 3.0-0.5 MG/3 ML Neb Soln NEB SCH ×3 (00:12→14:35)
[2017-03-26] MEDS: Budesonide 0.5 MG/2 ML Neb Susp INH SCH (06:15)
[2017-03-26] MEDS: Insulin Aspart 100 Units/ML 3 ML Pen SUBCUT SCH ×2 (06:39→12:00)
[2017-03-26] MEDS: Pantoprazole 40 MG Vial IVPUSH SCH (06:41)
[2017-03-26] MEDS ORDERED: Morphine 2 MG/ML Syringe IV PRN (07:45)
[2017-03-26] MEDS ORDERED: predniSONE 20 MG Tab PO SCH (08:00)
[2017-03-26] MEDS: Levofloxacin 250 MG Tab PO SCH ×2 (08:03→11:06)
[2017-03-26] MEDS: metroNIDAZOLE 250 MG Tab PO SCH ×2 (08:03→15:33)
[2017-03-26] MEDS ORDERED: Pantoprazole 40 MG Tab.CR PO SCH (09:00)
--- NOTE | 2017-03-26 11:01 | PCM.DCSUM1 ---
Discharge Summary - Hospital Course Free Text/Narrative:: Admission date: March 21, 2017 Discharge date March 26, 2017 Admission diagnosis: #1. Sepsis #2. Healthcare associated pneumonia #3. CHF exacerbation #4. Hypoxia #5. Hypotension #6. History of pulmonary embolism, CHF, type 2 diabetes Discharge diagnoses: #1. Healthcare associated pneumonia #2. Acute hypercapnic respiratory failure #3. History of pulmonary and was on, CHF, type 2 diabetes #4. Acute kidney injury that was improving #5. COPD exacerbation 56 yo female who presents with shortness of breath, hypoxia and hypotension concerning for health care associated pneumonia. Sepsis: will continue rescucitative measures and watch for sings of fluid overload due to history of CHF, trend lactic acid Pneumonia: on Vncomycin, zosyn, and levaquin. Sputum and blood cultures pending. Influenza screen pending CHF: hold lasix for now DM: place on slidding scale insulin History of PE: check INR as patient is on coumadin Hospital course: This is a 56-year-old female with extensive past medical history presented to the emergency department on 21 March from [facility] with a chief complaint of shortness of breath, hypoxia and hypotension. Initially, patient had both pressures 60s over 40s that responded well to fluid boluses. She was placed in ICU for respiratory support. Patient's ABG was consistent with hypercapnia, she was placed on BiPAP. She was placed on vancomycin, levofloxacin, Zosyn for pneumonia. She was also placed on Solu- Medrol as retreated for a COPD exacerbation. Patient's clinical status after 5 days in ICU did not show significant improvement. Patient's CODE STATUS was changed to DNR/DNI after discussion with family. The topic of hospice was also brought up to them to which they eventually agreed to. Given the clinical status , patient was then transferred to [facility] on hospice. Hospice came by to evaluate the patient and is to come up with a plan for comfort care. Family agrees to the plan. She was then discharged back to [facility] on home oxygen and BiPAP standby. - Discharge Data Discharge Date: 03/26/17 Discharge Disposition: DC/Tfer to [facility] Condition: Fair - Patient Summary/Data Consults: Consultations 03/24/17 10:07 Consult to Hospice [CONS] Routine - Patient Instructions Diet: Regular Diet as Tolerated Notify Provider of: Fever, Nausea and/or Vomiting Other/Special Instructions: To go with oxygen supplementation along with standby BiPAP. Agrawal catheter to remain in place - Discharge Plan Prescriptions/Med Rec: Levofloxacin 750 mg PO DAILY 5 Days #5 tablet metroNIDAZOLE 500 mg PO Q8H 7 Days #21 tablet Prednisone [IJD: predniSONE] 40 mg PO WITHBREAKFAST 5 Days #5 tablet Home Medications: Home Meds Albuterol Sulfate 1 inh IH Q4H PRN 09/20/15 [History] Formoterol [Perforomist] 1 inh INH BID 09/20/15 [History] metFORMIN HCl [Metformin HCl] 1,000 mg PO BIDMEALS 09/20/15 [History] predniSONE 10 mg PO DAILY 09/20/15 [History] ALPRAZolam [Alprazolam] 0.5 mg PO Q8H PRN 12/17/16 [History] Acetaminophen [Tylenol] 2 tab PO Q4H PRN 12/17/16 [History] Alum Hydrox/Mag Hydrox/Simeth [Mag-Al Plus] 20 ml PO Q4H PRN 12/17/16 [History] Benzocaine [Oral Anesthetic] 1 applic TP QID PRN 12/17/16 [History] Budesonide [Pulmicort] 1 inh INH BID 12/17/16 [History] Cetirizine [ZyrTEC] 10 mg PO DAILY 12/17/16 [History] Cyclobenzaprine [Flexeril] 10 mg PO Q6H PRN 12/17/16 [History] Docusate Sodium 100 mg PO DAILY 12/17/16 [History] Insulin Aspart [NovoLOG] 15 unit SUBCUT ACBREAKFAST 12/17/16 [History] Insulin Aspart [NovoLOG] 17 unit SUBCUT ASDIRECTED 12/17/16 [History] Insulin Aspart [NovoLOG] 100 unit SUBCUT ASDIRECTED 12/17/16 [History] Insulin Glarg,Human.Rec.Analog [LantUS Solostar] 45 units SUBCUT BEDTIME [History] Ipratropium [place] 2.5 ml IH QID 12/17/16 [History] Lisinopril 5 mg PO DAILY 12/17/16 [History] Magnesium Hydroxide [Milk of Magnesia] 30 ml PO DAILY PRN 12/17/16 [History] Menthol [Biofreeze] 1 applic TP BID PRN 12/17/16 [History] Montelukast Sodium 10 mg PO DAILY 12/17/16 [History] Sertraline [Zoloft] 25 mg PO DAILY 12/17/16 [History] Trolamine Salicylate/Aloe Vera [Aspercreme 10%] 1 applic TP BID 12/17/16 [ History] oxyCODONE HCl/Acetaminophen [Oxycodone-Acetaminophen 5-300] 2 tab PO Q6H PRN 12/24 [History] Furosemide 80 mg PO DAILY 03/21/17 [History] Levofloxacin [Levaquin] 750 mg PO DAILY 03/21/17 [History] Omeprazole 20 mg PO DAILY 03/21/17 [History] Warfarin [Coumadin] 2.5 mg PO DAILY 03/21/17 [History] Levofloxacin 750 mg PO DAILY 5 Days #5 tablet 03/26/17 [Rx] Prednisone [IJD: predniSONE] 40 mg PO WITHBREAKFAST 5 Days #5 tablet 03/26/17 [ Rx] metroNIDAZOLE 500 mg PO Q8H 7 Days #21 tablet 03/26/17 [Rx] Forms: ED Department Discharge Referrals: Alexey Cassidy MD [Physician] - 03/31/17 (next [facility] rounds) - Discharge Summary/Plan Comment Discharge Summary/Plan Comment: Admission date: March 21, 2017 Discharge date March 26, 2017 Admission diagnosis: #1. Sepsis #2. Healthcare associated pneumonia #3. CHF exacerbation #4. Hypoxia #5. Hypotension #6. History of pulmonary embolism, CHF, type 2 diabetes Discharge diagnoses: #1. Healthcare associated pneumonia #2. Acute hypercapnic respiratory failure #3. History of pulmonary and was on, CHF, type 2 diabetes #4. Acute kidney injury that was improving #5. COPD exacerbation 56 yo female who presents with shortness of breath, hypoxia and hypotension concerning for health care associated pneumonia. Sepsis: will continue rescucitative measures and watch for sings of fluid overload due to history of CHF, trend lactic acid Pneumonia: on Vncomycin, zosyn, and levaquin. Sputum and blood cultures pending. Influenza screen pending CHF: hold lasix for now DM: place on slidding scale insulin History of PE: check INR as patient is on coumadin Hospital course: This is a 56-year-old female with extensive past medical history presented to the emergency department on 21 March from [facility] with a chief complaint of shortness of breath, hypoxia and hypotension. Initially, patient had both pressures 60s over 40s that responded well to fluid boluses. She was placed in ICU for respiratory support. Patient's ABG was consistent with hypercapnia, she was placed on BiPAP. She was placed on vancomycin, levofloxacin, Zosyn for pneumonia. She was also placed on Solu- Medrol as retreated for a COPD exacerbation. Patient's clinical status after 5 days in ICU did not show significant improvement. Patient's CODE STATUS was changed to DNR/DNI after discussion with family. The topic of hospice was also brought up to them to which they eventually agreed to. Given the clinical status , patient was then transferred to [facility] on hospice. Hospice came by to evaluate the patient and is to come up with a plan for comfort care. Family agrees to the plan. She was then discharged back to [facility] on home oxygen and BiPAP standby. - Patient Data Vitals - Most Recent: Last Vital Signs Temp 36.0 C 03/26/17 10:00 Pulse 108 H 03/25/17 07:00 Resp 18 03/26/17 10:00 BP 106/39 L 03/26/17 10:00 Pulse Ox 93 L 03/26/17 10:00 Weight - Most Recent: 96 kg I&O - Last 24 hours: Intake & Output 03/25/17 03/26/17 03/26/17 22:59 06:59 14:59 Intake Total 1250 500 Output Total 925 800 Balance 325 -300 Lab Results - Last 24 hrs: Laboratory Results - last 24 hr 03/25/17 03/25/17 03/25/17 Range/Units 11:33 17:28 20:51 INR (0.86-1.11) POC Glucose 163 H 185 H 155 H (60-110) mg/dL 03/26/17 03/26/17 Range/Units 06:26 06:37 INR 3.18 H (0.86-1.11) POC Glucose 121 H (60-110) mg/dL Med Orders - Current: Current Medications Albuterol (Proventil Neb Soln) 2.5 mg INH Q4H PRN PRN Reason: Shortness of Breath Last Admin: 03/21/17 21:14 Dose: 2.5 mg Albuterol/Ipratropium (Duoneb 3.0-0.5 Mg/3 Ml) 3 ml NEB Q6HRRT [facility] Last Admin: 03/26/17 06:15 Dose: 3 ml Budesonide (Pulmicort) 0.5 mg INH BIDRT [facility] Last Admin: 03/26/17 06:15 Dose: 0.5 mg Sodium Chloride (Normal Saline) 1,000 mls @ 10 mls/hr IV ASDIRECTED [facility] Last Admin: 03/21/17 12:43 Dose: 10 mls/hr Sodium Chloride (Normal Saline) 500 mls @ 500 mls/hr IV .BOLUS [facility] Last Admin: 03/21/17 14:30 Dose: 500 mls/hr Insulin Aspart (Novolog) 0 unit SUBCUT QIDACANDBED [facility] PRN Reason: Protocol Last Admin: 03/26/17 06:39 Dose: Not Given Insulin Glargine (Lantus Solostar) 30 units SUBCUT BEDTIME [facility] Last Admin: 03/25/17 21:05 Dose: 30 units Levofloxacin (Levaquin) 750 mg PO Q24H [facility] Last Admin: 03/26/17 08:03 Dose: 750 mg Lorazepam (Ativan) 0.5 mg IVPUSH Q4H PRN PRN Reason: Anxiety Metronidazole (Metronidazole) 500 mg PO Q8H [facility] Last Admin: 03/26/17 08:03 Dose: 500 mg Morphine Sulfate (Morphine) 2 mg IV Q2H PRN PRN Reason: Dyspnea Warfarin, Pharmacy (To Dose) 0 each .XX DAILY@1400 [facility] Last Admin: 03/25/17 14:43 Dose: Not Given Ondansetron HCl (Zofran) 4 mg IVPUSH Q4H PRN PRN Reason: Nausea Last Admin: 03/22/17 00:45 Dose: 4 mg Pantoprazole Sodium (Protonix) 40 mg PO DAILY [facility] Last Admin: 03/26/17 08:03 Dose: 40 mg Prednisone (Prednisone) 40 mg PO WITHBREAKFAST [facility] Last Admin: 03/26/17 08:03 Dose: 40 mg Warfarin Sodium (Coumadin) 2.5 mg PO DAILY@1400 [facility] Last Admin: 03/25/17 14:46 Dose: 2.5 mg Discontinued Medications Furosemide (Lasix) 40 mg IVPUSH NOW ONE Stop: 03/22/17 17:29 Last Admin: 03/22/17 18:14 Dose: 40 mg Sodium Chloride (Normal Saline) 1,000 mls @ 250 mls/hr IV STAT ONE Stop: 03/21/17 15:02 Last Admin: 03/21/17 11:31 Dose: 999 mls/hr Levofloxacin/Dextrose 750 mg/ (Premix) 150 mls @ 100 mls/hr IV ONETIME ONE Stop: 03/21/17 13:23 Last Admin: 03/21/17 14:22 Dose: Not Given Dopamine HCl/Dextrose (Dopamine In D5w 400 Mg/250 Ml) 250 mls @ 0 mls/hr IV TITRATE GABRIELLA; 5 MCG/KG/MIN PRN Reason: Protocol Piperacillin Sod/Tazobactam (Sod 4.5 gm/ Sodium Chloride) 100 mls @ 100 mls/hr IV Q6H [facility] Last Admin: 03/22/17 05:15 Dose: 100 mls/hr Vancomycin HCl 1,500 mg/ (Sodium Chloride) 500 mls @ 250 mls/hr IV Q24H [facility] Last Admin: 03/24/17 20:21 Dose: Not Given Levofloxacin/Dextrose 750 mg/ (Premix) 150 mls @ 100 mls/hr IV Q48H [facility] Last Admin: 03/21/17 17:25 Dose: 100 mls/hr Propofol (Diprivan 100 Ml) Confirm Administered Dose 100 mls @ as directed .ROUTE .STK-MED ONE Stop: 03/22/17 08:22 Last Admin: 03/22/17 09:24 Dose: Not Given Levofloxacin/Dextrose 500 mg/ (Premix) 100 mls @ 66.667 mls/hr IV Q48H [facility] Last Admin: 03/23/17 18:49 Dose: 66.667 mls/hr Piperacillin Sod/Tazobactam (Sod 2.25 gm/ Sodium Chloride) 50 mls @ 100 mls/hr IV Q6H [facility] Last Admin: 03/24/17 05:15 Dose: 100 mls/hr Metronidazole 500 mg/ Premix 100 mls @ 100 mls/hr IV Q8H [facility] Last Admin: 03/26/17 00:12 Dose: 100 mls/hr Vancomycin HCl 1,500 mg/ (Sodium Chloride) 500 mls @ 250 mls/hr IV Q36H [facility] Last Admin: 03/25/17 14:46 Dose: 250 mls/hr Levofloxacin/Dextrose 500 mg/ (Premix) 100 mls @ 66.667 mls/hr IV Q48H [facility] Last Admin: 03/25/17 18:00 Dose: 66.667 mls/hr Insulin Aspart (Novolog) 0 unit SUBCUT TIDAC [facility] PRN Reason: Protocol Last Admin: 03/21/17 17:25 Dose: 2 units Insulin Glargine (Lantus Solostar) 45 units SUBCUT BEDTIME [facility] Lidocaine (Xylocaine-Mpf 2%) Confirm Administered Dose 5 ml .ROUTE .STK-MED ONE Stop: 03/25/17 08:54 Last Admin: 03/25/17 09:55 Dose: Not Given Methylprednisolone Sodium Succinate (Solu-Medrol) 125 mg IVPUSH Q6H [facility] Last Admin: 03/22/17 09:24 Dose: 125 mg Methylprednisolone Sodium Succinate (Solu-Medrol) 40 mg IV BID [facility] Last Admin: 03/25/17 21:03 Dose: 40 mg Morphine Sulfate (Morphine) 2 mg IV Q2H PRN PRN Reason: Dyspnea Last Admin: 03/26/17 07:12 Dose: 2 mg Warfarin Pharmacy To (Dose) 0 each .XX DAILY [facility] Pantoprazole Sodium (Protonix Iv) 40 mg IVPUSH Q24H [facility] Last Admin: 03/26/17 06:41 Dose: 40 mg Prednisone (Prednisone) 10 mg PO DAILY [facility] Last Admin: 03/24/17 09:13 Dose: Not Given Vancomycin HCl (Pharmacy To Dose - Vancomycin) 1 dose .XX ASDIRECTED [facility] *Q Meaningful Use (DIS) - VTE *Q VTE Criteria *Q: - Stroke *Q Stroke Criteria *Q: - AMI *Q AMI Criteria *Q:
[2017-03-26 14:39] VITALS: BP 139/52
== END 2017-03-26 15:00 | DRG 871 ==
LOC: MW.ED 10:40 → MW.ICU 12:13
PROVIDERS: ADMIT Internal Medicine; ATTEND Internal Medicine
PROC: 30233N1 Transfusion of Nonautologous Red Blood Cells into Peripheral Vein, Percutaneous Approach (ICD-10-PCS; principal; 2017-03-23)
DX: A41.9 Sepsis, unspecified organism (principal); J18.9 Pneumonia, unspecified organism; J44.9 Chronic obstructive pulmonary disease, unspecified; J96.02 Acute respiratory failure with hypercapnia; N17.9 Acute kidney failure, unspecified; J44.1 Chronic obstructive pulmonary disease with (acute) exacerbation; K81.0 Acute cholecystitis; I50.9 Heart failure, unspecified; E11.9 Type 2 diabetes mellitus without complications; Z86.711 Personal history of pulmonary embolism; Z79.01 Long term (current) use of anticoagulants; Z79.4 Long term (current) use of insulin; Z79.899 Other long term (current) drug therapy; Z66 Do not resuscitate; Z88.8 Allergy status to other drugs, medicaments and biological substances; I10 Essential (primary) hypertension; F41.9 Anxiety disorder, unspecified; F17.200 Nicotine dependence, unspecified, uncomplicated; D64.9 Anemia, unspecified
CPT/HCPCS: 36415; 36600; 71046; 80053; 83605; 83880; 84484; 85025; 85610; 87040 ×2; 96361; 99285; J7040; 36430; 71045; 71045-26; 76705; 76705-26; 80048; 80202; 81001; 82803; 82962; 85014; 85018; 86850; 86900; 86901; 86920; 86921; 86922; 87086; 87804; 93005; 94640; 94660; 96365; 99284; A9270-GY; C9113; J1815-GY; J1940; J1956; J2270; J2405; J2543; J2920; J2930; J3370; J7030; J7050; P9016